=== PATIENT | female | born 1990 | race Caucasian/White ===

== ENCOUNTER 2018-07-04 16:36 | Emergency (ER) | payer MEDICAID, SELFPAY ==
[2018-07-04 16:45] VITALS: BP 148/88; PULSE 90; RESP 16; TEMP 36.6; O2SAT 97
--- NOTE | 2018-07-04 17:03 | W.ED.GENAD ---
Discharge Plan Disposition Patient Disposition: HOME Condition: Stable Discharge Details Chief Complaint: RespSymp Clinical Impression: URI (upper respiratory infection) Primary Care Provider: Nadja Bearden ED Provider: Maged Borja Home Meds and New Rx's Prescriptions: Continued levonorgestrel-ethinyl estrad [Seasonale contraceptive] 1 EACH tablets,dose pack,3 month 1 cap PO DAILY AM RF: 0 venlafaxine 150 mg Capsule,Extended Release 24hr 150 mg PO DAILY RF: 0 Discharge Instructions Instructions: Upper Respiratory Infection (ED) Additional Instructions: if symptoms continue next week see your primary care provider if you have worsening difficulty breathing, high fevers or severe pain return to the emergency department you can try using over the counter nasal irrigation products such as a netti pot Stand Alone Forms: Work Release Medical Decision Making 28 yo female who denies chronic medical problems comes in with chief complaint of runny nose, cough for about a week. Denies chest pressure, sob, fevers, recent travel, rashes, severe headaches. Has clear rhinorrhea on exam, clear lungs and is speaking in full sentences and appears well systemically. I suspect viral uri with post nasal drip. Has no findings on exam to suggest pna or sepsis and do not fel xray, labs or abx indicated. Advised f/u with pcp next week and return precautions given. Differential Diagnosis uri, bronchitis, influenza HPI General Mode of arrival: ambulatory. Date/Time Provider Initiated Documentation: 07/04/18 16:51. Limitations to Documentation: no limitations. Information obtained by: patient. History of Present Illness 28 year old F presents to the emergency department with the chief complaint of runny nose, and is localized to the face. Patient reports no radiation. Patient started experiencing this week(s) (1) and it has been constant. No relieving factors improve symptom(s), No exacerbating factors reported . Patient did receive the following treatments prior to arrival, none Related Data Home Medications Medication Instructions Recorded Confirmed levonorgestrel-ethinyl estrad 1 cap PO DAILY AM 01/30/14 07/04/18 [Seasonale contraceptive] venlafaxine 150 mg PO DAILY 07/04/18 07/04/18 Allergies Allergy/AdvReac Type Severity Reaction Status Date / Time No Known Allergies Allergy Unverified 07/04/18 16:47 General Stated Complaint: RespSymp HEMANT: 4 Review of Systems Review of Systems All systems reviewed & are unremarkable except as noted in HPI and below Constitutional Denies chills, Denies fever(s) and Denies weakness Cardiovascular Denies chest pain and Denies dyspnea Respiratory Denies dyspnea Gastrointestinal Denies abdominal pain, Denies nausea and Denies vomiting Neurologic Denies weakness Psychiatric Denies depression PFSH Medical History Bipolar disorder Social History Smoking/Tobacco Use Status: Never Exam Const General: no acute distress Orientation: alert HENMT Head: normal to inspection Ears: external ears normal General nose exam: external nose normal Mouth: moist mucous membranes Eyes General: appearance normal, both eyes and all related structures Neck Neck: normal visual inspection Resp Effort & Inspection: normal respiratory effort and able to speak in complete sentences Cardio Rate: regular rate Skin General skin exam: no rashes or lesions noted Neuro General: alert and oriented x3 Extrem General: normal to inspection Psych Mental Status: mental status grossly normal Course Vital Signs Temperature 36.6 C 07/04/18 16:45 Pulse 90 07/04/18 16:45 Respiratory Rate 16 07/04/18 16:45 Blood Pressure 148/88 H 07/04/18 16:45 Pulse Oximetry 97 07/04/18 16:45 Temperature 36.6 C 07/04/18 16:45 Pulse 90 07/04/18 16:45 Respiratory Rate 16 07/04/18 16:45 Respiratory Effort 07/04/18 16:46 Blood Pressure 148/88 H 07/04/18 16:45 Blood Pressure Position Sitting 07/04/18 16:45 Pulse Oximetry 97 07/04/18 16:45 Oxygen Delivery Method Room Air 07/04/18 16:45 Oxygen Flow Rate 0 07/04/18 16:45 Pain Level 4 07/04/18 16:45
--- NOTE | 2018-07-04 17:06 | ED.GENADUL_ITS ---
Discharge Plan Disposition Patient Disposition: HOME Condition: Stable Discharge Details Chief Complaint: RespSymp Clinical Impression: URI (upper respiratory infection) Primary Care Provider: Nadja Bearden ED Provider: Maged Borja Home Meds and New Rx's Prescriptions: Continued levonorgestrel-ethinyl estrad [Seasonale contraceptive] 1 EACH tablets,dose pack,3 month 1 cap PO DAILY AM RF: 0 venlafaxine 150 mg Capsule,Extended Release 24hr 150 mg PO DAILY RF: 0 Discharge Instructions Instructions: Upper Respiratory Infection (ED) Additional Instructions: if symptoms continue next week see your primary care provider if you have worsening difficulty breathing, high fevers or severe pain return to the emergency department you can try using over the counter nasal irrigation products such as a netti pot Stand Alone Forms: Work Release Medical Decision Making 28 yo female who denies chronic medical problems comes in with chief complaint of runny nose, cough for about a week. Denies chest pressure, sob, fevers, recent travel, rashes, severe headaches. Has clear rhinorrhea on exam, clear lungs and is speaking in full sentences and appears well systemically. I suspect viral uri with post nasal drip. Has no findings on exam to suggest pna or sepsis and do not fel xray, labs or abx indicated. Advised f/u with pcp next week and return precautions given. Differential Diagnosis uri, bronchitis, influenza HPI General Mode of arrival: ambulatory . Date/Time Provider Initiated Documentation: 07/04/18 16:51 . Limitations to Documentation: no limitations . Information obtained by: patient . History of Present Illness 28 year old F presents to the emergency department with the chief complaint of runny nose, and is localized to the face. Patient reports no radiation. Patient started experiencing this week(s) (1) and it has been constant. No relieving factors improve symptom(s), No exacerbating factors reported . Patient did receive the following treatments prior to arrival, none Related Data Home Medications Medication Instructions Recorded Confirmed levonorgestrel-ethinyl estrad 1 cap PO DAILY AM 01/30/14 07/04/18 [Seasonale contraceptive] venlafaxine 150 mg PO DAILY 07/04/18 07/04/18 Allergies Allergy/AdvReac Type Severity Reaction Status Date / Time No Known Allergies Allergy Unverified 07/04/18 16:47 General Stated Complaint: RespSymp HEMANT: 4 Review of Systems Review of Systems All systems reviewed & are unremarkable except as noted in HPI and below Constitutional Denies chills, Denies fever(s) and Denies weakness Cardiovascular Denies chest pain and Denies dyspnea Respiratory Denies dyspnea Gastrointestinal Denies abdominal pain, Denies nausea and Denies vomiting Neurologic Denies weakness Psychiatric Denies depression PFSH Medical History Bipolar disorder Social History Smoking/Tobacco Use Status: Never Exam Const General: no acute distress Orientation: alert HENMT Head: normal to inspection Ears: external ears normal General nose exam: external nose normal Mouth: moist mucous membranes Eyes General: appearance normal, both eyes and all related structures Neck Neck: normal visual inspection Resp Effort & Inspection: normal respiratory effort and able to speak in complete sentences Cardio Rate: regular rate Skin General skin exam: no rashes or lesions noted Neuro General: alert and oriented x3 Extrem General: normal to inspection Psych Mental Status: mental status grossly normal Course Vital Signs Temperature 36.6 C 07/04/18 16:45 Pulse 90 07/04/18 16:45 Respiratory Rate 16 07/04/18 16:45 Blood Pressure 148/88 H 07/04/18 16:45 Pulse Oximetry 97 07/04/18 16:45 Temperature 36.6 C 07/04/18 16:45 Pulse 90 07/04/18 16:45 Respiratory Rate 16 07/04/18 16:45 Respiratory Effort 07/04/18 16:46 Blood Pressure 148/88 H 07/04/18 16:45 Blood Pressure Position Sitting 07/04/18 16:45 Pulse Oximetry 97 07/04/18 16:45 Oxygen Delivery Method Room Air 07/04/18 16:45 Oxygen Flow Rate 0 07/04/18 16:45 Pain Level 4 07/04/18 16:45
[2018-07-04 17:10] VITALS: BP 148/88; PULSE 90; RESP 16; TEMP 36.6; O2SAT 97
== END 2018-07-04 17:11 | disposition home or self-care (01) ==
PROVIDERS: Emergency Provider Emergency Medicine; PCP Nurse Practitioner Family
DX: J06.9 Acute upper respiratory infection, unspecified (principal)
CPT/HCPCS: 99282

== ENCOUNTER 2018-10-01 17:20 | Emergency (ER) | payer MEDICAID, SELFPAY ==
[2018-10-01 17:24] VITALS: BP 148/84; PULSE 84; RESP 18; TEMP 36.8
--- NOTE | 2018-10-01 17:32 | W.ED.GENAD ---
Discharge Plan Disposition Patient Disposition: HOME Discharge Details Chief Complaint: Urinary Clinical Impression: UTI (urinary tract infection), Cardiac murmur, Elevated blood pressure reading Primary Care Provider: Nadja Bearden ED Provider: Toney Ramon Home Meds and New Rx's Prescriptions: New cephalexin 500 mg tablet 500 mg PO BID Qty: 13 RF: 0 Continued levonorgestrel-ethinyl estrad [Seasonale contraceptive] 1 EACH tablets,dose pack,3 month 1 cap PO DAILY AM RF: 0 venlafaxine 150 mg Capsule,Extended Release 24hr 150 mg PO DAILY RF: 0 Discharge Instructions Instructions: Urinary Tract Infection in Women (ED), Heart Murmur (ED) Additional Instructions: Your blood pressure is elevated. You were noted to have a murmur on exam today. Please follow-up with your primary care physician. Please take full course of antibiotic as prescribed. Return to the ER for any worsening or new concerning symptoms. Referrals: Nadja Bearden [Primary Care Provider] - Medical Decision Making 28-year-old female here with dysuria. Patient does not appear septic. Patient informed that her blood pressure slightly elevated today and she should have this rechecked with her doctor. Patient also noted to have systolic murmur on exam. She has no known history of murmur. I encouraged her to follow-up with her doctor regarding this. Urine negative. Urinalysis reviewed and consistent with UTI. Plan to treat with Keflex. Offered Pyridium the patient declined and notes this is not helped her in the past. HPI General Mode of arrival: ambulatory. Date/Time Provider Initiated Documentation: 10/01/18 17:21. Limitations to Documentation: no limitations. Information obtained by: patient. HPI Narrative: 28-year-old female presents with chief complaint of dysuria. Patient notes painful urination started this morning. Pain is described as burning. Pain is moderate. Patient also notes urinary urgency. No nausea or vomiting. No flank pain. No fever. Symptoms feel exactly like prior urinary tract infection that she had last had 2 years ago. Related Data Home Medications Medication Instructions Recorded Confirmed levonorgestrel-ethinyl estrad 1 cap PO DAILY AM 01/30/14 10/01/18 [Seasonale contraceptive] venlafaxine 150 mg PO DAILY 07/04/18 10/01/18 cephalexin 500 mg PO BID #13 tab 10/01/18 Previous Rx's Medication Instructions Recorded cephalexin 500 mg PO BID #13 tab 10/01/18 Allergies Allergy/AdvReac Type Severity Reaction Status Date / Time No Known Allergies Allergy Unverified 07/04/18 16:47 General Stated Complaint: Urinary HEMANT: 5 Review of Systems Constitutional Denies fever(s) Gastrointestinal Denies vomiting Genitourinary Reports dysuria PFSH Medical History Bipolar disorder Social History Smoking/Tobacco Use Status: Never Alcohol Intake: never Drug use: Never Substance use type: does not use Do you feel safe at home: Yes Do you feel safe in your relationship?: Yes Exam HENMT Mouth: moist mucous membranes Resp Auscultation: clear to auscultation bilaterally, no rales, no rhonchi and no wheezes Cardio Jugular venous pressure: no JVD Rate: regular rate and not tachycardic Rhythm: regular rhythm Heart Sounds: murmur systolic I/ GI Palpation: soft, not firm, no guarding, no masses, not rigid and nontender Course Vital Signs Temperature 36.8 C 10/01/18 17:24 Pulse 84 10/01/18 17:24 Respiratory Rate 18 10/01/18 17:24 Blood Pressure 148/84 H 10/01/18 17:24 Temperature 36.8 C 10/01/18 17:24 Temperature Source Skin 10/01/18 17:24 Pulse 84 10/01/18 17:24 Respiratory Rate 18 10/01/18 17:24 Respiratory Effort Non-Labored 10/01/18 17:27 Blood Pressure 148/84 H 10/01/18 17:24 Blood Pressure Position Sitting 10/01/18 17:24 Pain Level 1 10/01/18 17:30
--- NOTE | 2018-10-01 17:36 | ED.GENADUL_ITS ---
Discharge Plan Disposition Patient Disposition: HOME Discharge Details Chief Complaint: Urinary Clinical Impression: UTI (urinary tract infection), Cardiac murmur, Elevated blood pressure reading Primary Care Provider: Nadja Bearden ED Provider: Toney Ramon Home Meds and New Rx's Prescriptions: New cephalexin 500 mg tablet 500 mg PO BID Qty: 13 RF: 0 Continued levonorgestrel-ethinyl estrad [Seasonale contraceptive] 1 EACH tablets,dose pack,3 month 1 cap PO DAILY AM RF: 0 venlafaxine 150 mg Capsule,Extended Release 24hr 150 mg PO DAILY RF: 0 Discharge Instructions Instructions: Urinary Tract Infection in Women (ED), Heart Murmur (ED) Additional Instructions: Your blood pressure is elevated. You were noted to have a murmur on exam today. Please follow-up with your primary care physician. Please take full course of antibiotic as prescribed. Return to the ER for any worsening or new concerning symptoms. Referrals: Nadja Bearden [Primary Care Provider] - Medical Decision Making 28-year-old female here with dysuria. Patient does not appear septic. Patient informed that her blood pressure slightly elevated today and she should have this rechecked with her doctor. Patient also noted to have systolic murmur on exam. She has no known history of murmur. I encouraged her to follow-up with her doctor regarding this. Urine negative. Urinalysis reviewed and consistent with UTI. Plan to treat with Keflex. Offered Pyridium the patient declined and notes this is not helped her in the past. HPI General Mode of arrival: ambulatory . Date/Time Provider Initiated Documentation: 10/01/18 17:21 . Limitations to Documentation: no limitations . Information obtained by: patient . HPI Narrative: 28-year-old female presents with chief complaint of dysuria. Patient notes painful urination started this morning. Pain is described as burning. Pain is moderate. Patient also notes urinary urgency. No nausea or vomiting. No flank pain. No fever. Symptoms feel exactly like prior urinary tract infection that she had last had 2 years ago. Related Data Home Medications Medication Instructions Recorded Confirmed levonorgestrel-ethinyl estrad 1 cap PO DAILY AM 01/30/14 10/01/18 [Seasonale contraceptive] venlafaxine 150 mg PO DAILY 07/04/18 10/01/18 cephalexin 500 mg PO BID #13 tab 10/01/18 Previous Rx's Medication Instructions Recorded cephalexin 500 mg PO BID #13 tab 10/01/18 Allergies Allergy/AdvReac Type Severity Reaction Status Date / Time No Known Allergies Allergy Unverified 07/04/18 16:47 General Stated Complaint: Urinary HEMANT: 5 Review of Systems Constitutional Denies fever(s) Gastrointestinal Denies vomiting Genitourinary Reports dysuria PFSH Medical History Bipolar disorder Social History Smoking/Tobacco Use Status: Never Alcohol Intake: never Drug use: Never Substance use type: does not use Do you feel safe at home: Yes Do you feel safe in your relationship?: Yes Exam HENMT Mouth: moist mucous membranes Resp Auscultation: clear to auscultation bilaterally, no rales, no rhonchi and no wheezes Cardio Jugular venous pressure: no JVD Rate: regular rate and not tachycardic Rhythm: regular rhythm Heart Sounds: murmur systolic I/ GI Palpation: soft, not firm, no guarding, no masses, not rigid and nontender Course Vital Signs Temperature 36.8 C 10/01/18 17:24 Pulse 84 10/01/18 17:24 Respiratory Rate 18 10/01/18 17:24 Blood Pressure 148/84 H 10/01/18 17:24 Temperature 36.8 C 10/01/18 17:24 Temperature Source Skin 10/01/18 17:24 Pulse 84 10/01/18 17:24 Respiratory Rate 18 10/01/18 17:24 Respiratory Effort Non-Labored 10/01/18 17:27 Blood Pressure 148/84 H 10/01/18 17:24 Blood Pressure Position Sitting 10/01/18 17:24 Pain Level 1 10/01/18 17:30
[2018-10-01 17:44] LABS: Bilirubin Negative (Negative); Blood Trace-intact (Negative); Clarity Clear; Glucose Negative (Negative); Ketones Negative (Negative); Leukocyte Esterase Trace (Negative); Nitrite Negative (Negative); Specific Gravity >= 1.030 (1.005-1.025); Urobilinogen 0.2 EU/dL (Up TO 0.2)
[2018-10-01 17:53] LABS: Bacteria Moderate HPF (Negative); C & S Indicated? Yes; Casts Negative LPF (Negative); Crystals Negative HPF (Negative); Epithelial Cells Rare HPF (Negative); Mucus Negative (Negative); Other Cells Negative (Negative)
[2018-10-01] MEDS: Cephalexin 500 MG CAP PO (18:34)
== END 2018-10-01 18:35 | disposition home or self-care (01) ==
PROVIDERS: Emergency Provider Student in an Organized Health Care Education/Training Program; PCP Nurse Practitioner Family
DX: N39.0 Urinary tract infection, site not specified (principal); B96.20 Unspecified Escherichia coli [E. coli] as the cause of diseases classified elsewhere; R03.0 Elevated blood-pressure reading, without diagnosis of hypertension
CPT/HCPCS: 87077; 99283; 81003; 81015; 87086; 87186

== ENCOUNTER 2019-04-19 16:52 | Outpatient (REF) | payer MEDICAID, SELFPAY ==
--- NOTE | 2019-04-19 16:10 | PAPFT_PTH ---
PATIENT: Lisa Powell LOC: [facility] U#:[id number] AGE/SX: 29/F ROOM: RE04/19/[address]: Nadja Bearden : 1990 BED: DIS: 04/19/2019 SPEC #: [id number] RECD: 04/19/19 18:09 STATUS: AMADO REBelen #: [id number] PRESLEY: 04/19/19 16:[address]: Nadja Bearden DEPT: [facility] Cytology RECD BY: Rubina Oliveira Tissues: 1 - CX/ENDOCX FOR PAP SMEARS Procedures: PAP THIN PREP/UVM Screening HPV DNA PROBE Comments: [id number]
[2019-04-19 18:38] LABS: HCT 38.6 % (36.0-46.0); HGB 13.5 g/dL (12.0-15.5); Mean Corpuscular Hemoglobin 31.3 pg (27.0-33.0); Mean Corpuscular Volume 89.4 fL (80-95); Mean Platelet Volume 10.3 fL (8.0-11.0); Platelet Count 262 x1000/uL (130-400); RBC 4.32 m/cumm (4.00-5.20); RBC Distribution Width 12.5 % (11.7-14.6); White Blood Cell Count 6.35 k/cumm (4.4-10.8)
[2019-04-19 19:10] LABS: Iron 106 ug/dL (50-175); Total Iron Binding Capacity 398 ug/dL (250-450); Transferrin Sat 27 % (15-50)
[2019-04-19 19:23] LABS: Anion Gap 13.2 mmol/L (3-11); BUN 12 mg/dL (7-18); CO2 23.8 mmol/L (21.0-32.0); CREATININE 0.91 mg/dL (0.55-1.02); Calcium 8.8 mg/dL (8.5-10.1); Calculated LDL 159 mg/dL; Chloride 103 mmol/L (98-107); Cholesterol 235 mg/dL (50-200); Ferritin 173 ng/mL (8-388); Glucose 113 mg/dL (70-100); HDL Cholesterol 36 mg/dL (40-60); Potassium 3.7 mmol/L (3.5-5.1); Sodium 140 mmol/L (136-145); TSH (W/Ref FT4) 2.27 uIU/mL (0.36-3.74); Triglyceride 204 mg/dL (30-150)
== END 2019-04-19 17:12 ==
LOC: NCHCN 16:52
PROVIDERS: PCP Nurse Practitioner Family; Visit Provider Nurse Practitioner Family
DX: R53.83 Other fatigue (principal); Z12.4 Encounter for screening for malignant neoplasm of cervix; Z11.51 Encounter for screening for human papillomavirus (HPV)
CPT/HCPCS: 80048; 80061; 85027; 88142; 82728; 83540; 83550; 84443; 87624

== ENCOUNTER 2020-05-23 15:05 | Outpatient (REF) | payer MEDICAID, SELFPAY ==
--- NOTE | 2020-05-23 14:30 | PAPFT_PTH ---
PATIENT: Lisa Powell LOC: REPLACED BY [facility] U#:[id number] AGE/SX: 30/F ROOM: RE05/23/[address]: Nadja Bearden : 1990 BED: DIS: 05/23/2020 SPEC #: [id number] RECD: 05/26/20 12:47 STATUS: AMADO REBelen #: [id number] PRESLEY: 05/23/20 14:[address]: Nadja Bearden DEPT: [facility] Cytology RECD BY: Brittni Middleton Tissues: 1 - CX/ENDOCX FOR PAP SMEARS Procedures: PAP THIN PREP/UVM Screening HPV DNA PROBE Comments: [id number] (CVPH#) (CHLAMYDIA/GC)
[2020-05-30 16:24] LABS: Chlamydia Result Negative (Negative)
[2020-05-30 16:25] LABS: GC Result Negative (Negative)
== END 2020-05-23 15:25 ==
LOC: NCHCN 15:05
PROVIDERS: PCP Nurse Practitioner Family; Visit Provider Nurse Practitioner Family
DX: Z00.00 Encounter for general adult medical examination without abnormal findings (principal); Z12.4 Encounter for screening for malignant neoplasm of cervix; Z11.51 Encounter for screening for human papillomavirus (HPV); Z11.3 Encounter for screening for infections with a predominantly sexual mode of transmission
CPT/HCPCS: 87491; 87591; 88142; 87624

== ENCOUNTER 2021-02-16 20:49 | Outpatient (REF) | payer MEDICAID, SELFPAY | END 2021-02-16 20:50 | disposition home or self-care (01) | LOC: LBN 20:49 | PROVIDERS: PCP Nurse Practitioner Family; Visit Provider Nurse Practitioner Family | DX: R30.0 Dysuria (principal) | CPT/HCPCS: 87077; 87086; 87186 ==

== ENCOUNTER 2021-03-04 19:39 | Outpatient (REF) | payer MEDICAID, SELFPAY | END 2021-03-04 19:40 | disposition home or self-care (01) | LOC: LBN 19:39 | PROVIDERS: PCP Nurse Practitioner Family; Visit Provider Physician Assistant Medical | DX: R30.0 Dysuria (principal) | CPT/HCPCS: 87077; 87086; 87186 ==

== ENCOUNTER 2021-03-15 10:38 | Emergency (ER) | payer MEDICAID, SELFPAY ==
[2021-03-15 10:57] LABS: Bilirubin Negative (Negative); Blood Small (Negative); Clarity Cloudy (Clear); Glucose Negative (Negative); Ketones Negative (Negative); Leukocyte Esterase Large (Negative); Nitrite Positive (Negative); Specific Gravity >= 1.030 (1.005-1.025); Urobilinogen 0.2 EU/dL (Up TO 0.2)
[2021-03-15 10:59] VITALS: BP 132/82; PULSE 72; TEMP 36.6; O2SAT 99
[2021-03-15 11:04] LABS: Bacteria Moderate HPF (Negative); Casts Negative LPF (Negative); Crystals Negative HPF (Negative); Epithelial Cells Many HPF (Negative); Mucus Trace (Negative)
[2021-03-15 11:05] LABS: C & S Indicated? No/Sq. Contamination
--- NOTE | 2021-03-15 11:10 | ED.GENADUL_ITS ---
Discharge Plan Disposition Patient Disposition: HOME Condition: Improving Discharge Details Clinical Impression: UTI (urinary tract infection) Primary Care Provider: Nadja Bearden ED Provider: Serjio Singh Home Meds and New Rx's Prescriptions: New cephalexin 500 mg tablet 500 mg PO TID 7 Days Qty: 21 RF: 0 fluconazole [Diflucan] 150 mg tablet 150 mg PO ONCE Qty: 1 RF: 0 Continued levonorgestrel-ethinyl estrad [Seasonale contraceptive] 1 EACH tablets,dose pack,3 month 1 cap PO DAILY AM RF: 0 Discharge Instructions Instructions: Urinary Tract Infection in Women (ED) Additional Instructions: Please follow-up in clinic on Tuesday as planned. Take antibiotics and Diflucan as prescribed. I recommend you take an [id number] probiotic once daily while on the antibiotics. Return to the ER for any acute concerns. Medical Decision Making 31-year-old female who reports her third urinary tract infection this month. Previously treated after visits at urgent care. Now with recurrent burning and urgency to urinate with associated with some itching. She denies discharge. She arrives to ER with reassuring vital signs and an unremarkable exam. Due to high patient volumes, no fibrin was available which I discussed with the patient. She deferred further examination including [employer] exam. She does have evidence of UTI. We will discussed with her also treating empirically with a single dose of Diflucan. She will follow-up as planned on Tuesday with primary care at which time urine results of culture may be reviewed. I will place her on 7 days of Keflex. She understands homecare, need for follow-up, as well as indications to return to the ER. HPI General Mode of arrival: ambulatory . Date/Time Provider Initiated Documentation: 03/15/21 10:54 . Limitations to Documentation: no limitations . Information obtained by: patient . History of Present Illness 31 year old F presents to the emergency department with the chief complaint of Recurrent burning with urination, described as mild and similar to prior episodes, Quality is described as dull, and is localized to the pelvis and genitals. Patient reports no radiation. Patient started experiencing this hour(s) and it has been constant. No relieving factors improve symptom(s), No exacerbating factors reported . Patient notes denies fever/chills. Patient did receive the following treatments prior to arrival, none Related Data Home Medications Medication Instructions Recorded Confirmed levonorgestrel-ethinyl estrad 1 cap PO DAILY AM 01/30/14 03/15/21 [Seasonale contraceptive] cephalexin 500 mg PO TID 7 Days #21 tab 03/15/21 fluconazole [Diflucan] 150 mg PO ONCE #1 tab 03/15/21 Previous Rx's Medication Instructions Recorded cephalexin 500 mg PO TID 7 Days #21 tab 03/15/21 fluconazole [Diflucan] 150 mg PO ONCE #1 tab 03/15/21 Allergies Allergy/AdvReac Type Severity Reaction Status Date / Time No Known Allergies Allergy Unverified 07/04/18 16:47 General Stated Complaint: Urinary HEMANT: 4 Review of Systems Narrative: Reports itching. No foul-smelling discharge, no pain with intercourse. 7 systems reviewed and otherwise negative [facility] Medical History (Updated 03/15/21 @ 11:14 by Serjio Singh MD) Bipolar disorder Social History Smoking/Tobacco Use Status: Never Smoking risk assessment performed?: Yes Alcohol Intake: never Drug use: Never Substance use type: does not use Do you feel safe at home: Yes Do you feel safe in your relationship?: Yes Exam Narrative Exam Narrative: GEN: awake, alert, oriented 3. Pleasant, well groomed, interactive. HEAD: Normocephalic, atraumatic EYES: PERRL, EOMI NECK: Full ROM, no BERNARDA, no menigismus CHEST/RESP: Nontender, clear to auscultation bilateral, no wheeze/rhonchi/rales CARDIOVASCULAR: RRR, no murmur, rub rosa. 2+ Rad pulse bilateral ABDOMEN: Soft, nontender, no mass. +Bowel sounds Neuro: Grossly normal neurologic exam, conversant, interactive. Psych: Speech fluent, thoughts congruent, affect normal Course Vital Signs Vital signs: Vital Signs Temperature 36.6 C 03/15/21 10:59 Pulse 72 03/15/21 10:59 Blood Pressure 132/82 03/15/21 10:59 Pulse Oximetry 99 03/15/21 10:59 Temperature 36.6 C 03/15/21 10:59 Temperature Source Temporal Artery Scan 03/15/21 10:59 Pulse 72 03/15/21 10:59 Respiratory Effort Non-Labored 03/15/21 11:02 Blood Pressure 132/82 03/15/21 10:59 Blood Pressure Position Sitting 03/15/21 10:59 Pulse Oximetry 99 03/15/21 10:59 Oxygen Delivery Method Room Air 03/15/21 10:59 Oxygen Flow Rate 0 03/15/21 10:59 Pain Level 4 03/15/21 11:02 Lab/Test Results Lab/Test Results: Laboratory Tests Range/Units 03/15/21 10:52 Urine Color (Yellow) Yellow Urine Clarity (Clear) Cloudy Urine pH (5-8) 6.0 Ur Specific Sweet (1.005-1.025) >= 1.030 H Urine Protein (Negative) mg/dL 30 H Urine Ketones (Negative) mg/dL Negative Urine Blood (Negative) Small H Urine Nitrite (Negative) Positive H Urine Bilirubin (Negative) Negative Urine Urobilinogen (Up TO 0.2) EU/dL 0.2 Ur Leukocyte Esterase (Negative) Large H Urine RBC (0-2) HPF 5-10 H Urine WBC (0-5) HPF 10-20 H Ur Epithelial Cells (Negative) HPF Many Urine Crystals (Negative) HPF Negative Urine Bacteria (Negative) HPF Moderate Urine Casts (Negative) LPF Negative Urine Mucus (Negative) Trace Ur Culture Indicated? No/Sq. Contamination Urine Glucose (Negative) mg/dL Negative POC- Test(urine) Negative
--- NOTE | 2021-03-15 14:13 | W.ED.FU ---
Follow Up Plan: Lab was unable to perform urine culture for service date 03/15
== END 2021-03-15 11:21 | disposition home or self-care (01) ==
PROVIDERS: Emergency Provider Emergency Medicine; PCP Nurse Practitioner Family
DX: N39.0 Urinary tract infection, site not specified (principal)
CPT/HCPCS: 81025; 99283; 81003; 81015; 87086

== ENCOUNTER 2021-03-29 12:14 | Emergency (ER) | payer MEDICAID, SELFPAY ==
[2021-03-29 12:19] VITALS: BP 121/83; PULSE 98; RESP 18; TEMP 36.5; O2SAT 98
--- NOTE | 2021-03-29 12:33 | W.ED.GENAD ---
Discharge Plan Disposition Patient Disposition: HOME Condition: Improving Discharge Details Clinical Impression: UTI (urinary tract infection) Primary Care Provider: Nadja Bearden ED Provider: Serjio Singh Home Meds and New Rx's Prescriptions: New sulfamethoxazole-trimethoprim [Bactrim DS] 800-160 mg tablet 1 tab PO BID 7 Days Qty: 14 RF: 0 Continued levonorgestrel-ethinyl estrad [Seasonale contraceptive] 1 EACH tablets,dose pack,3 month 1 cap PO DAILY AM RF: 0 fluconazole [Diflucan] 150 mg tablet 150 mg PO ONCE Qty: 1 RF: 0 Discharge Instructions Instructions: Urinary Tract Infection in Women (ED) Additional Instructions: We will ask our care management team to arrange a follow-up for you in urology clinic as we discussed. Take antibiotics as prescribed. Continue to liberally hydrate. Return to the ER for any acute concerns. Medical Decision Making 31-year-old female with a history of recurrent UTIs, more frequent this summer than previous. Seen by me in the emergency department on March 15 for acute cystitis, placed on Keflex. Urine culture did not occur from that visit. She now returns the ER with 2 days of recurrent burning with urination. Urinalysis is consistent with acute UTI. Will place her on Bactrim with culture pending and will ask care management to arrange a follow-up in urology for consideration of further work-up. HPI General Mode of arrival: ambulatory. Date/Time Provider Initiated Documentation: 03/29/21 12:18. Limitations to Documentation: no limitations. Information obtained by: patient. History of Present Illness 31 year old F presents to the emergency department with the chief complaint of Recurrent dysuria, described as mild and similar to prior episodes, and is localized to the abdomen and pelvis. Patient reports no radiation. Patient started experiencing this hour(s) and it has been intermittent. No relieving factors improve symptom(s), No exacerbating factors reported . Patient notes denies fever/chills, loss of appetite and nausea/vomiting. Related Data Home Medications Medication Instructions Recorded Confirmed levonorgestrel-ethinyl estrad 1 cap PO DAILY AM 01/30/03/29/21 [Seasonale contraceptive] fluconazole [Diflucan] 150 mg PO ONCE #1 tab 03/15/21 03/29/21 sulfamethoxazole-trimethoprim 1 tab PO BID 7 Days #14 tab 03/29/21 [Bactrim DS] Previous Rx's Medication Instructions Recorded fluconazole [Diflucan] 150 mg PO ONCE #1 tab 03/15/21 sulfamethoxazole-trimethoprim 1 tab PO BID 7 Days #14 tab 03/29/21 [Bactrim DS] Allergies Allergy/AdvReac Type Severity Reaction Status Date / Time No Known Allergies Allergy Unverified 03/29/21 12:24 General Stated Complaint: Urinary HEMANT: 3 Review of Systems Narrative: Otherwise well. Denies other complaints. [facility] Medical History (Updated 03/29/21 @ 12:56 by Serjio Singh MD) Bipolar disorder Social History Smoking/Tobacco Use Status: Never Smoking risk assessment performed?: Yes Alcohol Intake: never Drug use: Never Substance use type: does not use Do you feel safe at home: Yes Do you feel safe in your relationship?: Yes Exam Narrative Exam Narrative: GEN: awake, alert, oriented 3. Pleasant, well groomed, interactive. HEAD: Normocephalic, atraumatic ENT: Mucous membranes moist, oropharynx unremarkable, External ear exam unremarkable CHEST/RESP: Nontender, clear to auscultation bilateral, no wheeze/rhonchi/rales CARDIOVASCULAR: RRR, no murmur, rub rosa. 2+ Rad pulse bilateral ABDOMEN: Soft, nontender, no mass. +Bowel sounds EXT: Full ROM, no edema, no rash Neuro: Grossly normal neurologic exam, conversant, interactive. Psych: Speech fluent, thoughts congruent, affect normal Course Vital Signs Vital signs: Vital Signs Temperature 36.5 C 03/29/21 12:19 Pulse 98 H 03/29/21 12:19 Respiratory Rate 18 03/29/21 12:19 Blood Pressure 121/83 03/29/21 12:19 Pulse Oximetry 98 03/29/21 12:19 Temperature 36.5 C 03/29/21 12:19 Pulse 98 H 03/29/21 12:19 Respiratory Rate 18 03/29/21 12:19 Blood Pressure 121/83 03/29/21 12:19 Blood Pressure Position Sitting 03/29/21 12:19 Pulse Oximetry 98 03/29/21 12:19 Oxygen Delivery Method Room Air 03/29/21 12:19 Oxygen Flow Rate 0 03/29/21 12:19 Pain Level 0 03/29/21 12:19
[2021-03-29 12:40] LABS: Bilirubin Negative (Negative); Blood Moderate (Negative); Clarity Sl Cloudy (Clear); Glucose Negative (Negative); Ketones Negative (Negative); Leukocyte Esterase Large (Negative); Nitrite Negative (Negative); Specific Gravity >= 1.030 (1.005-1.025); Urobilinogen 0.2 EU/dL (Up TO 0.2)
[2021-03-29 12:57] LABS: Bacteria Moderate HPF (Negative); C & S Indicated? Yes; Casts Negative LPF (Negative); Crystals Negative HPF (Negative); Epithelial Cells Few HPF (Negative); Mucus Negative (Negative); WBC >50 HPF (0-5)
[2021-03-29] MEDS: Sulfameth/Trimeth DS, 2 TABS/BTL 1 TAB PO (13:03)
--- NOTE | 2021-03-29 17:07 | NUR.NOTE ---
referral sent to urology
== END 2021-03-29 13:41 | disposition home or self-care (01) ==
PROVIDERS: Emergency Provider Emergency Medicine; PCP Nurse Practitioner Family
DX: N39.0 Urinary tract infection, site not specified (principal); B96.20 Unspecified Escherichia coli [E. coli] as the cause of diseases classified elsewhere
CPT/HCPCS: 81025; 87077; 99283; 81003; 81015; 87086; 87186

== ENCOUNTER 2021-05-10 10:44 | Emergency (ER) | payer MEDICAID, SELFPAY ==
[2021-05-10 10:52] VITALS: BP 144/87; PULSE 87; RESP 18; TEMP 36.6; O2SAT 97
--- NOTE | 2021-05-10 11:02 | W.ED.GENAD ---
Discharge Plan Disposition Patient Disposition: HOME Condition: Stable Discharge Details Clinical Impression: UTI (urinary tract infection) Primary Care Provider: Nadja Bearden ED Provider: Chica Ramirez Home Meds and New Rx's Prescriptions: New cephalexin 500 mg tablet 500 mg PO QID 7 Days Qty: 28 RF: 0 Continued Nexplanon 68 mg implant 1 implant subdermal ONCE RF: 0 Discharge Instructions Instructions: Urinary Tract Infection in Women (ED) Additional Instructions: Your urinalysis is concerning for recurrent urinary tract infection. Please take the Keflex as prescribed. Even if symptoms improve, please take the entire course. Please encourage hydration. You may use Tylenol and ibuprofen as discomfort. Please take the Pyridium as prescribed to help with symptomatic management. This will turn your urine bright orange. Your vaginal pathology and GC/chlamydia is pending. I will call you with your vaginal pathology results today. Your STD testing will be pending and will return in a few days, we will call you with any positive results. If develop fever/chills, back pain, inability to hydrate, vomiting or other new/worsening symptoms please seek care urgently once again. Please follow-up as previously discussed with urology regarding your current urinary tract infections. Referrals: Nadja Bearden [Primary Care Provider] - Discharge Data Discharge Date/Time-TO BE ENTERED AT DEPARTURE: 05/10/21 12:24 Medical Decision Making Patient is a pleasant 31-year-old female presenting today with chief complaint of recurrent UTI and vaginal discharge. Patient reports that she had a multitude of UTIs this summer. States that last night she began having dysuria, increased frequency and urgency. This woke her up throughout the evening. Denies any back pain. No fevers or chills. Yesterday she also began noting unusual, foul-smelling vaginal discharge. Denies any rash. Patient denies history of STI. She states that she has a new partner for the last 7 months. He has no evidence of STI. Was last treated for STDs during her annual Pap last year. On exam, patient appears nontoxic. She is slightly hypertensive, she has an elevated like historically. Abdomen is benign. No CVA tenderness. Vaginal exam shows a thick yellow discharge. This has been sent for GC, chlamydia?past testing. Patient does not have any cervical tenderness, negative chandelier sign. Initial urine was contaminated. Repeat urine does have swelling of the leukocyte esterase, elevated WBCs, bacteria and rare epithelial cells. This has reflex to culture. Reviewed previous urine cultures, urine has been pansensitive. Discussed treatment options with the patient. We will begin her on Keflex. As she has had any recurrent infections, we will treat her 4 times daily. First dose was given here. Also gave dose of Pyridium as this is worked well for her in the past. Patient would like to be able to go home while waiting the results of her vaginal Pap screen. I will call her with the results and call in appropriate medications as indicated. Patient can be reached on her cell phone at [phone]. Strict return precautions were discussed. Patient reports that she has been referred to urology for her frequent UTIs. Had initially foregone follow-up with them as these seem to slow down. However, with the recurrence in 1 month, she will call tomorrow to schedule appointment. Vaginal pathology negative. Called patient to discuss. She is aware we are awaiting GC and chlamydia testing. All 0f her questions and concerns were addressed, she is in agreement [facility] plan above. HPI General Mode of arrival: ambulatory. Date/Time Provider Initiated Documentation: 05/10/21 11:01. Limitations to Documentation: no limitations. Information obtained by: patient and RN notes reviewed. History of Present Illness 31 year old F presents to the emergency department with the chief complaint of concern for UTI and vaginal discharge, described as moderate and similar to prior episodes, with intensity rated at 3. Quality is described as burning, and is localized to the genitals. Patient reports no radiation. Patient started experiencing this day(s) (1) and it has been constant. No relieving factors improve symptom(s), No exacerbating factors reported . Patient notes no other symptoms.; denies fever/chills, loss of appetite, nausea/vomiting and rash. Patient did receive the following treatments prior to arrival, none Related Data Home Medications Medication Instructions Recorded Confirmed etonogestrel 68 mg subdermal 1 implant SUBDERMAL ONCE 04/23/21 05/10/21 implant cephalexin 500 mg PO QID 7 Days #28 tab 05/10/21 Previous Rx's Medication Instructions Recorded cephalexin 500 mg PO QID 7 Days #28 tab 05/10/21 Allergies Allergy/AdvReac Type Severity Reaction Status Date / Time No Known Allergies Allergy Unverified 05/10/21 10:57 General Stated Complaint: Urinary HEMANT: 4 Review of Systems Constitutional Constitutional: Reports as per HPI, Denies chills, Denies fever(s) and Denies poor appetite Cardiovascular Cardiovascular: Denies chest pain Respiratory Respiratory: Denies cough Gastrointestinal Gastrointestinal: Denies abdominal pain, Denies change in bowel habits, Denies nausea and Denies vomiting Genitourinary Genitourinary: Reports as per HPI Musculoskeletal Musculoskeletal: Reports as per HPI and Denies back pain Integumentary/Breasts Skin/Breast: Reports as per HPI and Denies rash [facility] Medical History (Updated 05/10/21 @ 12:10 by JUAN Rivera) Abdominal pain Anxiety and depression ASCUS (atypical squamous cells of undetermined significance) on gynecologic Papanicolaou smear complicating , antepartum Bilateral plantar fasciitis Bipolar disorder Dysuria Left hip pain Low back pain Rash Social History Smoking/Tobacco Use Status: Never Smoking risk assessment performed?: Yes Alcohol Intake: current Alcohol Intake frequency: holidays/special occasions only Drug use: Never Substance use type: does not use Do you feel safe at home: Yes Do you feel safe in your relationship?: Yes Exam Const General: cooperative, healthy appearing, comfortable, no acute distress, well developed and well groomed Nutritional Appearance: well nourished and overweight Orientation: alert and awake Resp Effort & Inspection: normal respiratory effort and no respiratory distress Auscultation: clear to auscultation bilaterally, no rales, no rhonchi and no wheezes Cardio Rate: regular rate Rhythm: regular rhythm Heart Sounds: S1 normal and S2 normal GI Inspection: normal to inspection Palpation: soft, no hepatosplenomegaly, not firm, no guarding, not rigid and nontender External Female Exam: normal external appearance Speculum Exam - Vagina: normal appearance of the vagina and abnormal vaginal discharge yellow (thick) Speculum Exam - Cervix: normal appearance of the cervix Bimanual Exam- Vagina & Uterus: normal bimanual exam Bimanual Exam- Adnexa, other: normal adnexae Back/Spine/Pelvis Back: no CVA tenderness Skin General skin exam: no rashes or lesions noted Trauma: no lacerations or abrasions Neuro General: patient alert and patient awake Cognition: normal cognition Speech: speech normal Gait: normal gait Psych Appearance: grossly normal and well kempt Mental Status: mental status grossly normal Speech and Movement: speech and movement normal Course Vital Signs Vital signs: Vital Signs Temperature 36.6 C 05/10/21 10:52 Pulse 87 05/10/21 10:52 Respiratory Rate 18 05/10/21 10:52 Blood Pressure 144/87 H 05/10/21 10:52 Pulse Oximetry 97 05/10/21 10:52 Temperature 36.6 C 05/10/21 10:52 Temperature Source Temporal Artery Scan 05/10/21 10:52 Pulse 87 05/10/21 10:52 Respiratory Rate 18 05/10/21 10:52 Respiratory Effort Non-Labored 05/10/21 10:58 Blood Pressure 144/87 H 05/10/21 10:52 Blood Pressure Position Sitting 05/10/21 10:52 Pulse Oximetry 97 05/10/21 10:52 Oxygen Delivery Method Room Air 05/10/21 10:52 Oxygen Flow Rate 0 05/10/21 10:52 Pain Level 3 05/10/21 10:52
[2021-05-10 11:07] LABS: Bilirubin Negative (Negative); Blood Small (Negative); Clarity Cloudy (Clear); Glucose Negative (Negative); Ketones Negative (Negative); Leukocyte Esterase Moderate (Negative); Nitrite Negative (Negative); Specific Gravity >= 1.030 (1.005-1.025); Urobilinogen 0.2 EU/dL (Up TO 0.2); pH 5.5 (5-8)
[2021-05-10 11:19] LABS: Bacteria Few HPF (Negative); C & S Indicated? No/Sq. Contamination; Casts Negative LPF (Negative); Crystals Negative HPF (Negative); Epithelial Cells Many HPF (Negative); Mucus Negative (Negative); WBC >50 HPF (0-5)
[2021-05-10 11:55] LABS: Bilirubin Negative (Negative); Blood Trace-intact (Negative); Clarity Sl Cloudy (Clear); Glucose Negative (Negative); Ketones Negative (Negative); Leukocyte Esterase Small (Negative); Nitrite Negative (Negative); Urobilinogen 0.2 EU/dL (Up TO 0.2)
[2021-05-10 12:04] LABS: Bacteria Rare HPF (Negative); C & S Indicated? Yes; Casts Negative LPF (Negative); Crystals Negative HPF (Negative); Epithelial Cells Few HPF (Negative); Mucus Negative (Negative); RBC 0-2 HPF (0-2); WBC 20-50 HPF (0-5)
[2021-05-10] MEDS: Phenazopyridine 100 MG TAB PO (12:10)
[2021-05-10] MEDS: Cephalexin 500 MG CAP PO (12:17)
[2021-05-10 12:24] VITALS: BP 137/85; PULSE 84; RESP 17; TEMP 36.7; O2SAT 99
[2021-05-19 13:07] LABS: Chlamydia Result Negative (Negative); GC Result Negative (Negative)
== END 2021-05-10 12:24 | disposition home or self-care (01) ==
PROVIDERS: Emergency Provider Physician Assistant; PCP Nurse Practitioner Family
DX: N89.8 Other specified noninflammatory disorders of vagina (principal); N39.0 Urinary tract infection, site not specified; Z87.440 Personal history of urinary (tract) infections
CPT/HCPCS: 87491; 87591; 99284; 81003; 81015; 87086; 87480; 87510; 87660; 99283

== ENCOUNTER 2021-05-19 12:46 | Emergency (ER) | payer MEDICAID, SELFPAY ==
[2021-05-19 13:50] VITALS: BP 125/97; PULSE 88; RESP 16; TEMP 36.1; O2SAT 100
[2021-05-19 14:11] LABS: Bilirubin Negative (Negative); Blood Trace-lysed (Negative); Clarity Cloudy (Clear); Glucose Negative (Negative); Ketones Negative (Negative); Leukocyte Esterase Large (Negative); Nitrite Negative (Negative); Specific Gravity 1.015 (1.005-1.025); Urobilinogen 0.2 EU/dL (Up TO 0.2); pH 5.5 (5-8)
[2021-05-19 14:22] LABS: Bacteria Many HPF (Negative); C & S Indicated? Yes; Crystals Negative HPF (Negative); Epithelial Cells Moderate HPF (Negative); Mucus Negative (Negative); Other Cells Moderate Yeast (Negative); WBC >50 HPF (0-5)
--- NOTE | 2021-05-19 15:11 | W.ED.GENAD ---
Discharge Plan Disposition Patient Disposition: HOME Condition: Stable Discharge Details Clinical Impression: UTI (urinary tract infection) Primary Care Provider: Nadja Bearden ED Provider: Lj Keller Home Meds and New Rx's Prescriptions: New sulfamethoxazole-trimethoprim [Bactrim DS] 800-160 mg tablet 1 tab PO BID Qty: 14 RF: 0 Continued Nexplanon 68 mg implant 1 implant subdermal ONCE RF: 0 Discharge Instructions Instructions: Urinary Tract Infection in Women (ED) Additional Instructions: Bactrim as directed. [id number] Azo as directed. The specific steroid we discussed was hydrocortisone cream, do not use this internally. Please watch for new or worsening symptoms and return to the ER for any concerns. We also discussed the importance of outpatient follow-up B through women's health, urology, your primary care provider, etc. Discharge Data Discharge Date/Time-TO BE ENTERED AT DEPARTURE: 05/19/21 15:35 Medical Decision Making 31-year-old female presents with ongoing burning and itching with urination. She is afebrile, denies abdominal pain, back pain, nausea, vomiting, fever. Urinalysis was obtained per protocol prior to my evaluation. Reveals large leuk esterase, 5-10 red cells, greater than 50 white cells, moderate epithelial cells, many bacteria Urinalysis given her ongoing symptoms, urinalysis revealing large leuk esterase, greater than 50 white cells, many bacteria, I do believe treating with antibiotics is reasonable. Given her recent Keflex I do believe changing antibiotics is also prudent. Reviewing previous record, it appears she has a allen sensitive urine culture. Will place on back Patient reports that overall her tissue feels dry, denies any vaginal bleeding or discharge. Her urinalysis did reveal yeast. She did use [id number] Monistat yesterday with no relief of her symptoms. Patient did have a pelvic exam during her last ER visit. Patient at this time is evaluated in room 10 and I cannot adequately provide a more thorough pelvic exam here in this room. I did explain to the patient that I could move her to a more appropriate room when the space is available and perform a pelvic exam for further evaluation. Outside of physically examine her, it is difficult to distinguish her other symptoms such as itching and/or dryness. We did discuss that she could use a all-natural lubricant for the dryness which may help her overall symptoms and she could use a topical 0.5% hydrocortisone cream only externally to see if this makes her symptoms at all improved but again I would recommend a more thorough pelvic evaluation. Patient does not want to wait in the ER any longer than she already has, is declining waiting and being transferred into a more appropriate room for pelvic examination. Patient is agreeable to initiating antibiotic therapy and plans to contact her outpatient primary care provider and/or urologist for her ongoing symptoms. Given her concern for vaginal dryness I did recommend that she reach out to women's health as well. I did explain to her that she could return to the ER at any time for reevaluation and we could perform a pelvic exam at that time. Patient understands, would like to trial antibiotics, and follow-up as an outpatient. No additional questions or concerns at this time This documentation was generated using [employer] system, please disregard any oddities of phrase or misspellings. Medical Records Medical records reviewed: Yes I reviewed the patient's medical records. Lab Data Lab results reviewed: Yes I reviewed the patient's lab results. Labs: 05/19/21 13:58 Urine - Reflex from Ua Urine Culture - Preliminary Gram Negative [facility] Tests Range/Units 05/19/21 13:58 Urine Color (Yellow) Yellow Urine Clarity (Clear) Cloudy Urine pH (5-8) 5.5 Ur Specific [place] (1.005-1.025) 1.015 Urine Protein (Negative) mg/dL Negative Urine Ketones (Negative) mg/dL Negative Urine Blood (Negative) Trace-lysed H Urine Nitrite (Negative) Negative Urine Bilirubin (Negative) Negative Urine Urobilinogen (Up TO 0.2) EU/dL 0.2 Ur Leukocyte Esterase (Negative) Large H Urine RBC (0-2) HPF 5-10 H Urine WBC (0-5) HPF >50 H Ur Epithelial Cells (Negative) HPF Moderate Urine Crystals (Negative) HPF Negative Urine Bacteria (Negative) HPF Many Urine Mucus (Negative) Negative Urine Other (Negative) Moderate Yeast Ur Culture Indicated? Yes Urine Glucose (Negative) mg/dL Negative HPI General Mode of arrival: ambulatory. Date/Time Provider Initiated Documentation: 05/19/21 14:16. Limitations to Documentation: no limitations. Information obtained by: patient. HPI Narrative: This is a 31-year-old female, past medical history of anxiety, depression, bipolar disorder, frequent UTIs, presenting to the ER reporting dysuria and itching with urination. Patient states that she was recently in the ER and finished her Keflex antibiotics. She also used [id number] Monistat yesterday with no relief of her symptoms. During her most recent visit she did have a complete pelvic exam performed. Patient denies fever, abdominal pain, nausea, vomiting, back pain, hematuria, vaginal bleeding or discharge. She is sexually active with one partner denies history of STD or STD exposure. Patient has followed up with urology for this problem in the past, continues to get urinary tract infections, and is becoming frustrated with the process. Related Data Home Medications Medication Instructions Recorded Confirmed etonogestrel 68 mg subdermal 1 implant SUBDERMAL ONCE 04/23/21 05/19/21 implant sulfamethoxazole-trimethoprim 1 tab PO BID #14 tab 05/19/21 [Bactrim DS] Previous Rx's Medication Instructions Recorded sulfamethoxazole-trimethoprim 1 tab PO BID #14 tab 05/19/21 [Bactrim DS] Allergies Allergy/AdvReac Type Severity Reaction Status Date / Time No Known Allergies Allergy Unverified 05/19/21 13:54 General Stated Complaint: Urinary HEMANT: 3 Review of Systems Constitutional Constitutional: Denies fever(s) Gastrointestinal Gastrointestinal: Denies abdominal pain, Denies nausea and Denies vomiting Genitourinary Genitourinary: Denies abnormal vaginal bleeding, Reports genital pruritis, Denies genital lesions, Reports dysuria, Denies vaginal discharge and Reports vaginal dryness Musculoskeletal Musculoskeletal: Denies back pain Integumentary/Breasts Skin/Breast: Denies erythema and Denies rash COUNT INCLUDES THE [facility] Medical History Abdominal pain Anxiety and depression ASCUS (atypical squamous cells of undetermined significance) on gynecologic Papanicolaou smear complicating , antepartum Bilateral plantar fasciitis Bipolar disorder Dysuria Left hip pain Low back pain Rash Social History Smoking/Tobacco Use Status: Never Smoking risk assessment performed?: Yes Alcohol Intake: current Alcohol Intake frequency: holidays/special occasions only Drug use: Never Substance use type: does not use Do you feel safe at home: Yes Do you feel safe in your relationship?: Yes Exam Const General: cooperative, healthy appearing, comfortable and no acute distress Orientation: alert, awake and oriented x3 HENMT Head: normal to inspection, normocephalic and atraumatic Eyes General: appearance normal, both eyes and all related structures Conjunctivae: conjunctivae normal Neck Neck: normal visual inspection, trachea midline and supple Resp Effort & Inspection: normal respiratory effort and able to speak in complete sentences Auscultation: clear to auscultation bilaterally Cardio Rate: regular rate Rhythm: regular rhythm GI Inspection: normal to inspection Palpation: soft, not firm, no guarding, no pulsatile masses and nontender General: deferred Back/Spine/Pelvis Back: No back tenderness Skin General skin exam: no rashes or lesions noted Neuro General: patient alert, patient awake, moves all extremities and no focal motor deficits Cognition: normal cognition Speech: speech normal Gait: normal gait Sensory Exam: no sensory deficits noted Psych Appearance: grossly normal Mental Status: mental status grossly normal Course Vital Signs Vital signs: Vital Signs Temperature 36.1 C L 05/19/21 13:50 Pulse 88 05/19/21 13:50 Respiratory Rate 16 05/19/21 13:50 Blood Pressure 125/97 H 05/19/21 13:50 Pulse Oximetry 100 05/19/21 13:50 Temperature 36.1 C L 05/19/21 13:50 Temperature Source Tympanic 05/19/21 13:50 Pulse 88 05/19/21 13:50 Respiratory Rate 16 05/19/21 13:50 Respiratory Effort Non-Labored 05/19/21 13:54 Blood Pressure 125/97 H 05/19/21 13:50 Blood Pressure Position Sitting 05/19/21 13:50 Pulse Oximetry 100 05/19/21 13:50 Oxygen Delivery Method Room Air 05/19/21 13:50 Oxygen Flow Rate 0 05/19/21 13:50 Pain Level 2 05/19/21 13:50 Lab/Test Results Lab/Test Results: 05/19/21 13:58 Urine - Reflex from Ua Urine Culture - Pending Laboratory Tests Range/Units 05/19/21 13:58 Urine Color (Yellow) Yellow Urine Clarity (Clear) Cloudy Urine pH (5-8) 5.5 Ur Specific [place] (1.005-1.025) 1.015 Urine Protein (Negative) mg/dL Negative Urine Ketones (Negative) mg/dL Negative Urine Blood (Negative) Trace-lysed H Urine Nitrite (Negative) Negative Urine Bilirubin (Negative) Negative Urine Urobilinogen (Up TO 0.2) EU/dL 0.2 Ur Leukocyte Esterase (Negative) Large H Urine RBC (0-2) HPF 5-10 H Urine WBC (0-5) HPF >50 H Ur Epithelial Cells (Negative) HPF Moderate Urine Crystals (Negative) HPF Negative Urine Bacteria (Negative) HPF Many Urine Mucus (Negative) Negative Urine Other (Negative) Moderate Yeast Ur Culture Indicated? Yes Urine Glucose (Negative) mg/dL Negative
== END 2021-05-19 15:35 | disposition home or self-care (01) ==
PROVIDERS: Emergency Provider Physician Assistant; PCP Nurse Practitioner Family
DX: N39.0 Urinary tract infection, site not specified (principal); B96.89 Other specified bacterial agents as the cause of diseases classified elsewhere
CPT/HCPCS: 99283; 81003; 81015; 87086

== ENCOUNTER 2021-06-15 15:22 | Emergency (ER) | payer MEDICAID, SELFPAY ==
[2021-06-15 15:35] VITALS: BP 145/96; PULSE 86; RESP 18; O2SAT 99
[2021-06-15 16:16] LABS: Bilirubin Negative (Negative); Blood Negative (Negative); Clarity Cloudy (Clear); Glucose Negative (Negative); Ketones Negative (Negative); Leukocyte Esterase Trace (Negative); Nitrite Positive (Negative); Specific Gravity >= 1.030 (1.005-1.025); Urobilinogen 0.2 EU/dL (Up TO 0.2); pH 5.5 (5-8)
--- NOTE | 2021-06-15 16:17 | ED.GENADUL_ITS ---
Discharge Plan Disposition Patient Disposition: HOME Condition: Stable Discharge Details Clinical Impression: UTI (urinary tract infection) Primary Care Provider: Nadja Bearden ED Provider: Chica Ramirez Home Meds and New Rx's Prescriptions: New cephalexin 500 mg capsule 500 mg PO QID 7 Days Qty: 28 RF: 0 nitrofurantoin monohyd/m-cryst [Macrobid] 100 mg capsule 100 mg PO ONCE PRNQty: 14 RF: 0 Continued Nexplanon 68 mg implant 1 implant subdermal ONCE RF: 0 Discharge Instructions Instructions: Urinary Tract Infection in Women (ED) Additional Instructions: You have another recurrent UTI. Please take the cephalexin as prescribed for your acute infection. Please encourage hydration. If you would like to transition your cranberry supplement to d-mannose, you can try this to see if that helps prevent recurrent infections. I have also prescribed you Macrobid which is an antibiotic that will be taken to 1 dose when you have sexual intercourse. Please keep your follow-up appointment with urology. If you develop fever/chills, back pain or other new/worsening symptom please seek care urgently once again. Referrals: Hayde Buckley, MAURICIO [NURSE PRACTITIONER] - Discharge Data Discharge Date/Time-TO BE ENTERED AT DEPARTURE: 06/15/21 16:44 Medical Decision Making Patient is a pleasant 31-year-old female presenting today with chief complaint of recurrent UTI. Patient reports that she had several UTIs in the past few months. Has been seen by urology. She symptoms began approximately 2 days ago. She was sexually active the night prior. She questioning if she may have had some symptoms are very mild today prior to that. She denies any fevers or chills. No back or flank pain. Denies any nausea or vomiting. Denies any vaginal discharge. Denies any change in bowel habits. States this does feel like her UTIs have instructed with dysuria, increased frequency and urgency. Reviewed note from when patient was seen recently by urology. This appears to be just prior through the large uptake in the number of urinary tract infection. At that time, the urology provider was able to identify that the seems to be sexually linked. The patient continues to agree with this. They did discuss beginning prophylactic antibiotics to be used after sexual intercourse but this had not been started as of yet. Patient has been using cranberry supplements. States that she is not drinking as much water as she should be. On exam, patient appears nontoxic. She does seem quite frustrated regarding her recurrent UTIs. She has no CVA tenderness. No abdominal discomfort. She is not endorsing any vaginal complaints at this time, do not see need for pelvic exam. I did perform pelvic exam on her last month and it was negative . Advised the patient transition to d-mannose. Patient has been pansensitive in the past. Her urine today is elevated specific gravity, positive nitrites, trace leukocyte esterase and many bacteria. We will treat once again with antibiotics. Also begin the patient on nitrofurantoin to be taken prophylactically after sexual intercourse. I encouraged water intake. Advised that she follow-up with urology once again. They have been planning to see her in 3 months.. Return precautions were discussed. All of her questions and concerns were addressed and she is in agreement this plan. HPI General Mode of arrival: ambulatory . Date/Time Provider Initiated Documentation: 06/15/21 15:26 . Limitations to Documentation: no limitations . Information obtained by: RN notes reviewed . History of Present Illness 31 year old F presents to the emergency department with the chief complaint of concern for UTI, described as mild and similar to prior episodes, with intensity rated at 3. Quality is described as burning, and is localized to the pelvis. Patient reports no radiation. Patient started experiencing this day(s) (3) and it has been constant. No relieving factors improve symptom(s), No exacerbating factors reported . Patient notes no other symptoms.. Patient did receive the following treatments prior to arrival, none Related Data Home Medications Medication Instructions Recorded Confirmed etonogestrel 68 mg subdermal 1 implant SUBDERMAL ONCE 04/23/21 06/15/21 implant cephalexin 500 mg PO QID 7 Days #28 cap 06/15/21 nitrofurantoin monohyd/m-cryst 100 mg PO ONCE PRN #14 cap 06/15/21 [Macrobid] Previous Rx's Medication Instructions Recorded cephalexin 500 mg PO QID 7 Days #28 cap 06/15/21 nitrofurantoin monohyd/m-cryst 100 mg PO ONCE PRN #14 cap 06/15/21 [Macrobid] Allergies Allergy/AdvReac Type Severity Reaction Status Date / Time No Known Allergies Allergy Unverified 06/15/21 15:37 General Stated Complaint: Urinary HEMANT: 4 Review of Systems Constitutional Constitutional: Reports as per HPI, Denies chills, Denies fever(s) and Denies poor appetite Cardiovascular Cardiovascular: Denies chest pain Respiratory Respiratory: Denies cough Gastrointestinal Gastrointestinal: Denies abdominal pain, Denies change in bowel habits, Denies nausea and Denies vomiting Genitourinary Genitourinary: Reports as per HPI Musculoskeletal Musculoskeletal: Reports as per HPI and Denies back pain Integumentary/Breasts Skin/Breast: Reports as per HPI and Denies rash [facility] Medical History Abdominal pain Anxiety and depression ASCUS (atypical squamous cells of undetermined significance) on gynecologic Papanicolaou smear complicating , antepartum Bilateral plantar fasciitis Bipolar disorder Dysuria Left hip pain Low back pain Rash Social History Smoking/Tobacco Use Status: Never Smoking risk assessment performed?: Yes Alcohol Intake: current Alcohol Intake frequency: holidays/special occasions only Drug use: Never Substance use type: does not use Do you feel safe at home: Yes Do you feel safe in your relationship?: Yes Exam Const General: cooperative, healthy appearing, comfortable, no acute distress, well developed and well groomed Nutritional Appearance: well nourished and overweight Orientation: alert and awake Resp Effort & Inspection: normal respiratory effort and no respiratory distress Auscultation: clear to auscultation bilaterally, no rales, no rhonchi and no wheezes Cardio Rate: regular rate Rhythm: regular rhythm Heart Sounds: S1 normal and S2 normal GI Inspection: normal to inspection Palpation: soft, no hepatosplenomegaly, not firm, no guarding, not rigid and nontender Back/Spine/Pelvis Back: no CVA tenderness Skin General skin exam: no rashes or lesions noted Trauma: no lacerations or abrasions Neuro General: patient alert and patient awake Cognition: normal cognition Speech: speech normal Gait: normal gait Psych Appearance: grossly normal and well kempt Mental Status: mental status grossly normal Speech and Movement: speech and movement normal Course Vital Signs Vital signs: Vital Signs Pulse 86 06/15/21 15:35 Respiratory Rate 18 06/15/21 15:35 Blood Pressure 145/96 H 06/15/21 15:35 Pulse Oximetry 99 06/15/21 15:35 Pulse 86 06/15/21 15:35 Respiratory Rate 18 06/15/21 15:35 Respiratory Effort Non-Labored 06/15/21 15:39 Blood Pressure 145/96 H 06/15/21 15:35 Blood Pressure Position Sitting 06/15/21 15:35 Pulse Oximetry 99 06/15/21 15:35 Oxygen Delivery Method Room Air 06/15/21 15:35 Oxygen Flow Rate 0 06/15/21 15:35 Pain Level 5 06/15/21 15:39 Lab/Test Results Lab/Test Results: POC- Test(urine) Negative
[2021-06-15 16:27] LABS: Bacteria Many HPF (Negative); C & S Indicated? Yes; Casts Negative LPF (Negative); Crystals Negative HPF (Negative); Epithelial Cells Few HPF (Negative); Mucus Negative (Negative); RBC 0-2 HPF (0-2)
[2021-06-15 16:48] VITALS: BP 145/96; PULSE 86; RESP 18; O2SAT 99
== END 2021-06-15 16:44 | disposition home or self-care (01) ==
PROVIDERS: Registered Nurse Emergency; Emergency Provider Physician Assistant; PCP Nurse Practitioner Family
DX: N39.0 Urinary tract infection, site not specified (principal); B96.20 Unspecified Escherichia coli [E. coli] as the cause of diseases classified elsewhere
CPT/HCPCS: 81025; 87077; 99283; 81003; 81015; 87086; 87186

== ENCOUNTER 2021-10-11 07:58 | Emergency (ER) | payer MEDICAID, SELFPAY ==
[2021-10-11 08:10] VITALS: BP 123/75; PULSE 78; RESP 18; TEMP 36.5; O2SAT 98
[2021-10-11 08:21] LABS: Bilirubin Negative (Negative); Blood Negative (Negative); Clarity Sl Cloudy (Clear); Glucose Negative (Negative); Ketones Negative (Negative); Leukocyte Esterase Small (Negative); Nitrite Positive (Negative); Specific Gravity >= 1.030 (1.005-1.025); Urobilinogen 0.2 EU/dL (Up TO 0.2)
--- NOTE | 2021-10-11 08:21 | W.ED.GENAD ---
Discharge Plan Disposition Patient Disposition: HOME Condition: Stable Discharge Details Clinical Impression: UTI (urinary tract infection) Primary Care Provider: Nadja Bearden ED Provider: Ely Hong Home Meds and New Rx's Prescriptions: New sulfamethoxazole-trimethoprim [Bactrim DS] 800-160 mg tablet 1 tab PO BID 5 Days Qty: 10 0RF phenazopyridine [Pyridium] 200 mg tablet 200 mg PO TID PRN (Reason: pain) Qty: 6 0RF nitrofurantoin monohyd/m-cryst [Macrobid] 100 mg capsule 100 mg PO ONCE Qty: 14 0RF Rx Instructions: must administer with a meal/food; take 1 tab before or after sexual intercourse Continued Nexplanon 68 mg implant 1 implant subdermal ONCE 0RF Rx Instructions: as a single dose Discharge Instructions Instructions: Urinary Tract Infection in Women (ED) Additional Instructions: Your urine sample today shows evidence of a urinary tract infection. Your urinary tract infection is being treated with the antibiotic Bactrim. Take this as directed until finished. Take the medication Pyridium to help with symptoms of discomfort, burning or pain. Be aware that this will turn your urine an orange color. You are also being sent home with a prescription for the antibiotic Macrobid to take 1 dose before or after sexual intercourse. Be sure to urinate before and after intercourse. You can try showering after intercourse to clean the genital area. Follow-up with your scheduled appointment with urology next month. Follow-up with women's wellness for further recommendations regarding your Nexplanon. Return immediately to the emergency department if you develop any worsening or new concerning symptoms. Referrals: Froy Yip MD [ [facility] STAFF PHYSICIAN] - Discharge Data Discharge Date/Time-TO BE ENTERED AT DEPARTURE: 10/11/21 09:19 Discharge Physician: Ely Hong Medical Decision Making 31-year-old female with a history of recurrent UTI presents with UTI symptoms this morning. Review of records notes that she has been seen in the ED multiple times over the past several months and diagnosed with UTI. She was last treated in May 2021 with Keflex for UTI. Several urine cultures have noted greater than 100,000 colonies of E. coli which has been pansensitive. Records note that she has been treated with Bactrim and Keflex for her UTI. She has also been placed on prophylactic Macrobid to take before or after intercourse. She has seen urology who recommended d-mannose and agreed with prophylactic Macrobid. Her vitals are within normal limits. She appears comfortable and nontoxic. Urinalysis was obtained on arrival and appears consistent with UTI but has many epithelial cells and is contaminated. She was able to provide a second urine sample which also appeared contaminated but discussed with lab and this can be sent for a urine culture. As urine cultures have shown E. coli and been pansensitive, will treat with Bactrim. She was given 1 dose here as well as a prescription for Bactrim, prophylactic Macrobid and Pyridium. Advised to follow-up with scheduled appointment with urology next month. Usual and customary return precautions given prior to discharge. Medical Records Medical records reviewed: Yes I reviewed the patient's medical records. Lab Data Lab results reviewed: Yes I reviewed the patient's lab results. Labs: Laboratory Tests Range/Units 10/11/21 10/11/21 08:09 08:45 Urine Color (Yellow) Yellow Yellow Urine Clarity (Clear) Sl Cloudy Clear Urine pH (5-8) 6.0 5.5 Ur Specific [place] (1.005-1.025) >= 1.030 H 1.010 Urine Protein (Negative) mg/dL Negative Negative Urine Ketones (Negative) mg/dL Negative Negative Urine Blood (Negative) Negative Negative Urine Nitrite (Negative) Positive H Negative Urine Bilirubin (Negative) Negative Negative Urine Urobilinogen (Up TO 0.2) EU/dL 0.2 0.2 Ur Leukocyte Esterase (Negative) Small H Negative Urine RBC (0-2) HPF 5-10 H Urine WBC (0-5) HPF >50 H Ur Epithelial Cells (Negative) HPF Many Urine Crystals (Negative) HPF Negative Urine Bacteria (Negative) HPF Many Urine Casts (Negative) LPF Negative Urine Mucus (Negative) Negative Ur Culture Indicated? No/Sq. Contamination Urine Glucose (Negative) mg/dL Negative Negative HPI General Mode of arrival: ambulatory. Date/Time Provider Initiated Documentation: 10/11/21 08:16. Limitations to Documentation: no limitations. Information obtained by: patient. HPI Narrative: Patient is a 31-year-old female with history of recurrent UTI who presents for urinary discomfort, urgency, hesitancy with some dysuria since this morning. She states the symptoms feel consistent with her usual urinary tract infection. She states she had sexual intercourse yesterday and states this is usually her trigger for UTI. She states she has seen urology for her frequent UTIs and was placed on d-mannose. She also states she has been seen several times in the emergency department since February 2021. UTI and was last treated at the end of May. She states she was placed on prophylactic Macrobid to take at the time of intercourse to prevent UTI. She states this was working but she ran out in July. She states her next appointment with urology is next month. She denies any fever, nausea, vomiting, or back pain. Related Data Home Medications Medication Instructions Recorded Confirmed etonogestrel 68 mg subdermal 1 implant SUBDERMAL ONCE 04/23/21 10/11/21 implant (Nexplanon) nitrofurantoin 100 mg PO ONCE #14 cap 10/11/21 monohydrate/macrocrystals 100 mg capsule (Macrobid) phenazopyridine 200 mg tablet 200 mg PO TID PRN #6 tab 10/11/21 (Pyridium) sulfamethoxazole 800 1 tab PO BID 5 Days #10 tab 10/11/21 mg-trimethoprim 160 mg tablet (Bactrim DS) Previous Rx's Medication Instructions Recorded nitrofurantoin 100 mg PO ONCE #14 cap 10/11/21 monohydrate/macrocrystals 100 mg capsule (Macrobid) phenazopyridine 200 mg tablet 200 mg PO TID PRN #6 tab 10/11/21 (Pyridium) sulfamethoxazole 800 1 tab PO BID 5 Days #10 tab 10/11/21 mg-trimethoprim 160 mg tablet (Bactrim DS) Allergies Allergy/AdvReac Type Severity Reaction Status Date / Time No Known Allergies Allergy Unverified 10/11/21 08:14 General Stated Complaint: Urinary HEMANT: 4 Review of Systems All systems reviewed & are unremarkable except as noted in HPI and below Constitutional Constitutional: Reports as per HPI, Denies chills and Denies fever(s) Eyes Eyes: Denies blurry vision ENT Ears, Nose, Mouth, and Throat: Denies dizziness, Denies sore throat and Denies throat swelling Cardiovascular Cardiovascular: Denies chest pain and Denies dyspnea Respiratory Respiratory: Denies cough and Denies dyspnea Gastrointestinal Gastrointestinal: Denies abdominal pain, Denies diarrhea and Denies vomiting Genitourinary Genitourinary: Denies hematuria, Reports difficulty voiding, Denies dysuria, Reports urinary hesitancy and Reports urinary urgency Musculoskeletal Musculoskeletal: Denies back pain and Denies numbness Integumentary/Breasts Skin/Breast: Denies lesions and Denies rash Neurologic Neurologic: Denies dizziness, Denies localized weakness and Denies numbness Allergic/Immunologic Allergic/Immunologic: Denies throat swelling PFSH All Active Problems (Updated 10/11/21 @ 08:45 by Ely Hong DO) UTI (urinary tract infection) (Acute) UTI (urinary tract infection) (Acute) Medical History Abdominal pain Anxiety and depression ASCUS (atypical squamous cells of undetermined significance) on gynecologic Papanicolaou smear complicating , antepartum Bilateral plantar fasciitis Bipolar disorder Dysuria Left hip pain Low back pain Rash Social History Smoking/Tobacco Use Status: Never Smoking risk assessment performed?: Yes Alcohol Intake: current Alcohol Intake frequency: holidays/special occasions only Drug use: Never Substance use type: does not use Do you feel safe at home: Yes Do you feel safe in your relationship?: Yes Exam Const General: cooperative, healthy appearing and no acute distress Orientation: alert, awake and oriented x3 HENMT Head: normal to inspection Mouth: oral mucosae normal Eyes General: appearance normal, both eyes and all related structures Neck Neck: normal visual inspection Resp Effort & Inspection: normal respiratory effort and able to speak in complete sentences Auscultation: clear to auscultation bilaterally Cardio Rate: regular rate Rhythm: regular rhythm GI Inspection: normal to inspection and obesity Palpation: soft, not firm, no guarding, not rigid and nontender Auscultation: hypoactive bowel sounds Back/Spine/Pelvis Back: no CVA tenderness Skin General skin exam: no rashes or lesions noted Neuro General: patient alert, patient awake and patient oriented x3 Motor: muscle tone normal throughout Extrem General: normal to inspection and full ROM Psych Appearance: grossly normal Affect: normal affect Course Vital Signs Vital signs: Vital Signs Temperature 97.7 F 10/11/21 08:10 Pulse 78 10/11/21 08:10 Respiratory Rate 18 10/11/21 08:10 Blood Pressure 123/75 10/11/21 08:10 Pulse Oximetry 98 10/11/21 08:10 Temperature 97.7 F 10/11/21 08:10 Temperature Source Temporal Artery Scan 10/11/21 08:10 Pulse 78 10/11/21 08:10 Respiratory Rate 18 10/11/21 08:10 Respiratory Effort Non-Labored 10/11/21 08:14 Blood Pressure 123/75 10/11/21 08:10 Blood Pressure Position Sitting 10/11/21 08:10 Pulse Oximetry 98 10/11/21 08:10 Oxygen Delivery Method Room Air 10/11/21 08:10 Oxygen Flow Rate 0 10/11/21 08:10 Pain Level 2 10/11/21 08:14 Lab/Test Results Lab/Test Results: POC- Test(urine) Negative
[2021-10-11 08:29] LABS: Bacteria Many HPF (Negative); C & S Indicated? No/Sq. Contamination; Casts Negative LPF (Negative); Crystals Negative HPF (Negative); Epithelial Cells Many HPF (Negative); Mucus Negative (Negative); WBC >50 HPF (0-5)
[2021-10-11] MEDS: Sulfameth/Trimeth DS TAB 1 TAB PO (08:48)
[2021-10-11 09:04] LABS: Bilirubin Negative (Negative); Blood Negative (Negative); Clarity Clear (Clear); Glucose Negative (Negative); Ketones Negative (Negative); Leukocyte Esterase Negative (Negative); Nitrite Negative (Negative); Urobilinogen 0.2 EU/dL (Up TO 0.2); pH 5.5 (5-8)
== END 2021-10-11 09:19 | disposition home or self-care (01) ==
PROVIDERS: Emergency Provider Physician Assistant; PCP Nurse Practitioner Family
DX: N39.0 Urinary tract infection, site not specified (principal)
CPT/HCPCS: 81025; 99283; 81003; 81015

== ENCOUNTER 2021-12-10 15:27 | Emergency (ER) | payer MEDICAID, SELFPAY ==
[2021-12-10 15:29] VITALS: BP 145/88; PULSE 78; RESP 14; TEMP 37; O2SAT 100
[2021-12-10 15:54] LABS: Bilirubin Negative (Negative); Blood Negative (Negative); Clarity Clear (Clear); Glucose Negative (Negative); Ketones Negative (Negative); Leukocyte Esterase Negative (Negative); Nitrite Negative (Negative); Specific Gravity >= 1.030 (1.005-1.025); Urobilinogen 0.2 EU/dL (Up TO 0.2); pH 5.5 (5-8)
--- NOTE | 2021-12-10 15:58 | ED.GENADUL_ITS ---
Discharge Plan Disposition Patient Disposition: HOME Condition: Stable Discharge Details Clinical Impression: Dysuria Primary Care Provider: Nadja Bearden ED Provider: Jean-Claude Dowling Home Meds and New Rx's Prescriptions: New nitrofurantoin monohyd/m-cryst [Macrobid] 100 mg capsule 100 mg PO Q12H 5 Days Qty: 10 0RF Rx Instructions: must administer with a meal/food Continued Nexplanon 68 mg implant 1 implant subdermal ONCE Rx Instructions: as a single dose Discharge Instructions Instructions: Dysuria (ED) Additional Instructions: At this time your urine shows no signs of urinary tract infection that is concerning for possible dehydration/and concentrated urine. Over the next 24 to 48 hours please drink 2 to 3 L of water to see if this helps resolve your symptoms. You may also take [id number] AZO and drink cranberry juice to see if this also helps your symptoms. At this time we have sent a culture for your urine and you have been prescribed a prescription for antibiotics that you should only use if you have worsening symptoms after hydration or if we contact you to inform you that your culture came back positive for infection. Feel free to return to the emergency department if you develop any abdominal pain, severe nausea with persistent vomiting, new or worsening symptoms that were not present today. Referrals: Nadja Bearden [Primary Care Provider] - (As needed for reassessment) Medical Decision Making Patient presenting to the emergency department for chief complaint of urinary tract infectious type symptoms. She states that she has had 7 UTIs since February and has seen urology. Yesterday patient started having symptoms return. Denies any precipitating event. Physical exam is unremarkable for any concerning findings for pyelonephritis, systemic illness, and patient denies any vaginal complaints. Review of labs show that patient is not and urinalysis is unremarkable at this time for infection but does show concentration. I question if possible discomfort is secondary to dehydration so will encourage patient to hydrate. Given patient's history I will plan on sending a urine culture and giving patient a pocket prescription for antibiotics with clear instructions to only use if symptoms worsen or if we contact her with culture results. After discussion of diagnosis and plan of care patient has no further needs, questions, or concerns and states clear understanding to return to the emergency department for any worsening symptoms. Upon discussing discharge with patient she then brought up the question of a yeast infection. While patient denies any vaginal discharge or irritation we did discuss signs and symptoms to watch for and I did offer a vaginal examination. At this time patient is deferring that examination so she was encouraged to use Monistat [id number] if she is concerned for this or return for a vaginal exam at that time. HPI General Mode of arrival: ambulatory . Date/Time Provider Initiated Documentation: 12/10/21 15:37 . Limitations to Documentation: no limitations . Information obtained by: patient . History of Present Illness 31 year old F presents to the emergency department with the chief complaint of UTI symptoms, described as mild, with intensity rated at 4. Quality is described as burning, and is localized to the genitals. Patient reports no radiation. Patient started experiencing this day(s) (1) and it has been constant. No relieving factors improve symptom(s), No exacerbating factors reported . Patient notes no other symptoms.. Patient did receive the following treatments prior to arrival, none Related Data Home Medications Medication Instructions Recorded Confirmed etonogestrel 68 mg subdermal 1 implant subdermal ONCE 04/23/21 12/10/21 implant (Nexplanon) nitrofurantoin 100 mg PO Q12H 5 days #10 caps 12/10/21 monohydrate/macrocrystals 100 mg capsule (Macrobid) Previous Rx's Medication Instructions Recorded nitrofurantoin 100 mg PO Q12H 5 days #10 caps 12/10/21 monohydrate/macrocrystals 100 mg capsule (Macrobid) Allergies Allergy/AdvReac Type Severity Reaction Status Date / Time sulfamethoxazole AdvReac Mild vomiting Unverified 12/10/21 15:35 [From Bactrim] trimethoprim [From Bactrim] AdvReac Mild vomiting Unverified 12/10/21 15:35 General Stated Complaint: Urinary HEMANT: 4 Review of Systems Constitutional Constitutional: Denies body ache(s), Denies chills, Denies fever(s), Denies malaise and Denies weakness Cardiovascular Cardiovascular: Denies chest pain Respiratory Respiratory: Reports system reviewed and no additional complaints, except as documented Gastrointestinal Gastrointestinal: Denies abdominal pain, Denies nausea and Denies vomiting Genitourinary Genitourinary: Reports as per HPI, Denies hematuria, Reports dysuria, Denies pelvic pain, Reports urinary urgency, Denies vaginal discharge, Denies vaginal odor and Denies vaginal pruritus Musculoskeletal Musculoskeletal: Denies back pain Neurologic Neurologic: Denies confusion and Denies weakness Psychiatric Psychiatric: Denies confusion PFSH All Active Problems (Updated 12/10/21 @ 16:04 by Jean-Claude Dowling NP) Dysuria (Acute) UTI (urinary tract infection) (Acute) Medical History Abdominal pain Anxiety and depression ASCUS (atypical squamous cells of undetermined significance) on gynecologic Papanicolaou smear complicating , antepartum Bilateral plantar fasciitis Bipolar disorder Dysuria Left hip pain Low back pain Rash Social History Smoking/Tobacco Use Status: Never Smoking risk assessment performed?: Yes Alcohol Intake: current Alcohol Intake frequency: holidays/special occasions only Drug use: Never Substance use type: does not use Do you feel safe at home: Yes Do you feel safe in your relationship?: Yes History History 0 Para Hx # Term Pregnancies Multiple births Hx # Pregnancies Ectopic pregnancies AB induced Hx Number of Living Children AB spontaneous Exam Const General: cooperative and no acute distress Orientation: alert, awake and oriented x3 Resp Effort & Inspection: normal respiratory effort and able to speak in complete sentences Auscultation: clear to auscultation bilaterally Cardio Rate: regular rate Rhythm: regular rhythm Heart Sounds: S1 normal and S2 normal GI Palpation: nontender Back/Spine/Pelvis Back: no CVA tenderness Neuro General: patient alert, patient awake and patient oriented x3 Extrem General: capillary refill normal Course Vital Signs Vital signs: Vital Signs Temperature 37 C 12/10/21 15:29 Pulse 78 12/10/21 15:29 Respiratory Rate 14 12/10/21 15:29 Blood Pressure 145/88 H 12/10/21 15:29 Pulse Oximetry 100 12/10/21 15:29 Temperature 37 C 12/10/21 15:29 Temperature Source Skin 12/10/21 15:29 Pulse 78 12/10/21 15:29 Respiratory Rate 14 12/10/21 15:29 Respiratory Effort 12/10/21 15:36 Blood Pressure 145/88 H 12/10/21 15:29 Blood Pressure Position Sitting 12/10/21 15:29 Pulse Oximetry 100 12/10/21 15:29 Oxygen Delivery Method Room Air 12/10/21 15:29 Oxygen Flow Rate 0 12/10/21 15:29 Pain Level 2 12/10/21 15:37 Comment 12/10/21 15:29 Lab/Test Results Lab/Test Results: POC- Test(urine) Negative
== END 2021-12-10 16:21 | disposition home or self-care (01) ==
PROVIDERS: Emergency Provider Nurse Practitioner Family; PCP Nurse Practitioner Family
DX: R30.0 Dysuria (principal)
CPT/HCPCS: 81025; 99283; 81003; 87086

== ENCOUNTER 2022-05-02 20:14 | Emergency (ER) | payer MEDICAID, SELFPAY ==
[2022-05-02 20:25] VITALS: BP 137/83; PULSE 130; RESP 16; TEMP 38.3; O2SAT 97
--- NOTE | 2022-05-02 20:58 | ED.GENADUL_ITS ---
Discharge Plan Disposition Patient Disposition: HOME Condition: Good Discharge Details Clinical Impression: COVID-19, Viral illness, Chills Primary Care Provider: Nadja Bearden ED Provider: Chuy Horton Home Meds and New Rx's Prescriptions: No Action Nexplanon 68 mg implant 1 implant subdermal ONCE Rx Instructions: as a single dose Discharge Instructions Instructions: Viral Syndrome (ED) Additional Instructions: At this time your urinalysis is returned negative. You do have COVID-19. However please also continue to monitor your symptoms closely and if you develop any other new symptoms and do not feel any improvement you may need to be reassessed for potential other etiology. Take Tylenol and Motrin as needed for pain. Get plenty of sleep. Take the next 2 days off. Drink plenty of fluids and stay well-hydrated. Please drink 10 to 12 cups of water / electrolyte solution per day. If you notice any worsening of your symptoms, or any new symptoms such as vomiting, diarrhea, fever, chills, shortness of breath, chest pain, numbness, weakness, or fainting , please return immediately to the emergency department for reevaluation. Please follow up with your primary care provider as soon as possible for reassessment and reevaluation. As always, it was a pleasure participating in your medical care today. Referrals: Nadja Bearden [Primary Care Provider] - Medical Decision Making 32-year-old female presents today for evaluation of chills. Patient states that all day long she has had chills and aches. She states very clearly that these are her only symptoms. She does admit to mild fatigue. She denies sore throat, cough, chest pain, urinary frequency, dysuria, headache, neck stiffness, vomiting, diarrhea, abdominal pain, or other sick contacts. She has not received her flu shot this year. She has not had a COVID-vaccine. She has not yet had COVID either. She denies any other complaints at this time. She has had previous urinary tract infections, but states that this feels slightly dissimilar. She did take ibuprofen earlier today just before coming in. No other complaints at this time. No other modifying factors. Physical exam demonstrates a well-appearing female, however she is febrile with mild tachycardia. She denies any concerning symptoms otherwise. No chest pain no pleuritic chest pain. Symptoms inconsistent with PE. No cough or shortness of breath. Lung sounds are clear. No meningeal signs. Differential is highest for COVID, flu, or viral etiology. UTI is also high in the differential. Patient does not want any blood work or fluids at this time. She has declined these interventions. We will test for flu headache, get a UA, give Tylenol. 10:40 PM UA is negative for infection. Patient's COVID test is positive. This came back as she was leaving the department and she was informed of the results. Patient remained stable. I did offer her Paxlovid. Patient did ask if it would make her nauseous, and I did discuss with her that this could be one of the potential side effects. Patient has requested to hold off on antivirals for the time being. She states that she will return for the medication if her symptoms worsen. I have extensively reviewed the treatment plan and discharge inst ructions with the patient. I have addressed all patient concerns at this time. The patient was made aware of what symptoms to monitor for that would warrant a return to the emergency department. Discussed the plan with the patient, they demonstrate verbal understanding and agreement with our assessment and plan at this time. The documentation in this chart was dictated using [employer] dictation software. Please excuse any dictation errors. HPI General Date/Time Provider Initiated Documentation: 05/02/22 20:25 . HPI Narrative: 32-year-old female presents today for evaluation of chills. Patient states that all day long she has had chills and aches. She states very clearly that these are her only symptoms. She does admit to mild fatigue. She denies sore throat, cough, chest pain, urinary frequency, dysuria, headache, neck stiffness, vomiting, diarrhea, abdominal pain, or other sick contacts. She has not received her flu shot this year. She has not had a COVID-vaccine. She has not yet had COVID either. She denies any other complaints at this time. She has had previous urinary tract infections, but states that this feels slightly dissimilar. She did take ibuprofen earlier today just before coming in. No other complaints at this time. No other modifying factors. Related Data Home Medications Medication Instructions Recorded Confirmed etonogestrel 68 mg subdermal 1 implant subdermal ONCE 04/23/21 05/02/22 implant (Nexplanon) Allergies Allergy/AdvReac Type Severity Reaction Status Date / Time sulfamethoxazole AdvReac Mild vomiting Unverified 05/02/22 20:28 [From Bactrim] trimethoprim [From Bactrim] AdvReac Mild vomiting Unverified 05/02/22 20:28 General Stated Complaint: GenMedical HEMANT: 4 Review of Systems All systems reviewed & are unremarkable except as noted in HPI and below PFSH All Active Problems (Updated 05/02/22 @ 22:42 by Chuy Horton DO) Viral illness (Acute) Chills (Acute) COVID-19 (Acute) Encounter for counseling regarding contraception (Acute) Nexplanon in place (Acute) UTI (urinary tract infection) (Acute) Medical History Abdominal pain Anxiety and depression ASCUS (atypical squamous cells of undetermined significance) on gynecologic Papanicolaou smear complicating , antepartum Bilateral plantar fasciitis Bipolar disorder Dysuria Left hip pain Low back pain Rash Social History Smoking/Tobacco Use Status: Never Smoking risk assessment performed?: Yes Alcohol Intake: current Alcohol Intake frequency: holidays/special occasions only Drug use: Never Substance use type: does not use Do you feel safe at home: Yes Do you feel safe in your relationship?: Yes History History 0 Para Hx # Term Pregnancies Multiple births Hx # Pregnancies Ectopic pregnancies AB induced Hx Number of Living Children AB spontaneous Exam Narrative Exam Narrative: 1.Const: Well-nourished, Well-developed, appearing stated age 2.Eyes: PERRL, no conjunctival injection, and symmetrical lids. 3.ENT: Atraumatic external nose and ears. Moist MM. Neck: Symmetric, trachea midline, No thyromegaly. Patient demonstrates good movement of cervical neck. There is no nuchal rigidity, no nuchal tenderness. Patient is able to flex the neck without any difficulty or significant pain. Negative Kernig's and Brudzinski sign. No erythema in the posterior oropharynx. No tonsillar exudate. No evidence of otitis media. 4.CVS: +S1/S2, No murmurs or gallops. Peripheral pulses 2+ and equal in all extremities. Brisk capillary refill in all extremities. 5.RESP: Unlabored respiratory effort. Clear to auscultation bilaterally. No wheezes rales or rhonchi 6.GI: Soft, Nontender/Nondistended, No hepatosplenomegaly. No guarding or rebound. 7.MSK: Normocephalic/Atraumatic, Extremities w/o deformity or ttp No cyanosis or clubbing, Normal movement of all extremities 8.Skin: Warm, Dry. No rashes or lesions. 9.Neuro: naval inspector II-XII grossly intact. Sensation grossly intact, no focal neurologic deficits. 10.Psych: (AAO) x3. Appropriate mood and affect Course Vital Signs Vital signs: Vital Signs Temperature 38.3 C H 05/02/22 20:25 Pulse 130 H 05/02/22 20:25 Respiratory Rate 16 05/02/22 20:25 Blood Pressure 137/83 05/02/22 20:25 Pulse Oximetry 97 05/02/22 20:25 Temperature 38.3 C H 05/02/22 20:25 Temperature Source Oral 05/02/22 20:25 Pulse 130 H 05/02/22 20:25 Respiratory Rate 16 05/02/22 20:25 Respiratory Effort 05/02/22 20:25 Blood Pressure 137/83 05/02/22 20:25 Blood Pressure Position Sitting 05/02/22 20:25 Pulse Oximetry 97 05/02/22 20:25 Oxygen Delivery Method Room Air 05/02/22 20:25 Oxygen Flow Rate 0 05/02/22 20:25 Pain Level 2 05/02/22 20:25
[2022-05-02 21:02] VITALS: RESP 24
[2022-05-02 21:13] LABS: Bilirubin Negative (Negative); Blood Negative (Negative); Clarity Clear (Clear); Glucose Negative (Negative); Ketones Negative (Negative); Leukocyte Esterase Negative (Negative); Nitrite Negative (Negative); Specific Gravity 1.025 (1.005-1.025); Urobilinogen 0.2 EU/dL (Up TO 0.2)
[2022-05-02 21:14] VITALS: TEMP 36.5
[2022-05-02] MEDS: Acetaminophen 500 MG TAB 1000 MG PO (21:14)
[2022-05-02 21:46] LABS: Influenza A PCR Negative (Negative); Influenza B PCR Negative (Negative); RSV PCR Negative (Negative)
[2022-05-02 21:47] LABS: COVID-19 PCR Positive (Negative)
[2022-05-02 22:45] VITALS: BP 124/78; PULSE 121; RESP 17; TEMP 37.2; O2SAT 97
== END 2022-05-02 22:36 | disposition home or self-care (01) ==
PROVIDERS: Emergency Provider Student in an Organized Health Care Education/Training Program; PCP Nurse Practitioner Family
DX: U07.1 COVID-19 (principal); Z28.310 Unvaccinated for COVID-19
CPT/HCPCS: 87637; 99282; 81003; 99284

== ENCOUNTER 2024-09-03 11:10 | Emergency (ER) | payer SELFPAY ==
[2024-09-03 11:32] VITALS: BP 150/85; PULSE 129; RESP 12; TEMP 37.5; O2SAT 97
--- OUTSIDE RECORDS SUMMARY | 2024-09-03 11:52 | XMS_ITS | Referral Summary ---
Author Organization [facility] Address [address] [place] [address] Care Team Providers Care Bag Turner Name Role Phone Unknown, Provider Primary Care Provider Unava ilable Social History Tobacco Use Types Packs/Day Years Used Date Smoking Tobacco: Never Assessed Comments Unknown Sex and Gender Information Value Date Recorded Sex Assigned at Not on file Legal Sex Female 18:55 EST Gender Identity Not on file Sexual Orientation Not on file Plan of Treatment Not on file Care Teams Bag Turner Relationship Specialty Start Date End Date Unknown, Provider, PCP - General 08/24/11
--- OUTSIDE RECORDS SUMMARY | 2024-09-03 11:52 | XMS_ITS | Clinical Summary ---
Author Organization [facility] Address [address] [place] [address] Care Team Providers Care Automated Manufacturing Instructor Name Role Phone Unknown, Provider MD Primary Care Provider Unava ilable Social History Tobacco Use Types Packs/Day Years Used Date Smoking Tobacco: Never Assessed Comments Unknown Sex and Gender Information Value Date Recorded Sex Assigned at Not on file Legal Sex Female 18:55 EST Gender Identity Not on file Sexual Orientation Not on file Plan of Treatment Health Maintenance Due Date Last Done Comments Hepatitis C Screen 1990 Hepatitis B Vaccine (1 of 3 - 19+ 3-dose series) 02/17 COVID-19 Vaccine ( season) 2024 Care Teams Automated Manufacturing Instructor Relationship Specialty Start Date End Date Unknown, Provider, PCP - General 08/24/11
--- OUTSIDE RECORDS SUMMARY | 2024-09-03 11:52 | XMS_ITS | Encounter Summary ---
Author Organization [facility] Address [address] [place] [address] Care Team Providers Care Locksmith Apprentice Name Role Phone Unknown, Provider Primary Care Provider Unava ilable Encounter Details Date Type Department Care Team (Late st Contact Info) Description 08/20/2011 Results Only [facility] ([facility] [address] [place] [address], [place] [id number] Michelle Trivedi, KAILEE [address] [place] [address] Social History Tobacco Use Types Packs/Day Years Used Date Smoking Tobacco: Never Assessed Comments Unknown Sex and Gender Information Value Date Recorded Sex Assigned at Not on file Legal Sex Female 18:55 EST Gender Identity Not on file Sexual Orientation Not on file documented as of this encounter Plan of Treatment Not on file documented as of this encounter Procedures Procedure Name Priority Date/Time Associated Diagnosis Comments PAP TEST- RESULT ONLY Routine 08/20/2011 0:00 EST documented in this encounter Results * PAP TEST- RESULT ONLY (08/20/2011 0:00 EST) Pathology Report: CYTOPATHOLOGY REPORT Reports generated via electronic interface contain original data; however they are lacking the format of the original report. Caution should be taken when reading/interpreti ng unformatted reports. Name: ? GABRIEL LISA Benedicto ? Accession #: ? [id number] : ? 1990 (Age: 21) ??F ?Collect Date: ? 08/20/2011 Location: ? [facility] ? Receive Date: ? 08/24/2011 Provider: ?MICHELLE TRIVEDI ACCOUNT INSTALLATION SPECIALIST Copy to: ? Specimen/Source: ?Pap Test, Cervix/Endocervix, ThinPrep Imaging System with manual evaluation Last Menstrual Period: ? 07/29/2011 Hormonal/Contracep tive Status: ? Control Pills ? SPECIMEN ADEQUACY ? Satisfactory for Evaluation - transformation zone component absent - scant squamous epithelial component secondary to excessive blood GENERAL CATEGORIZATION ? Negative for Intraepithelial Lesion or Malignancy ? Document reviewed and electronically signed by: ? LORENZO Colmenares(ASCP) ? Report Date: ??08/27/2011 08:24 End of Report TERRANCE KENNEY 08/20/2011 08/24/2011 us Michelle Trivedi ACCOUNT INSTALLATION SPECIALIST PATHOLOGY ORDERABLES Final Res ult TERRANCE KENNEY [address] [place] [address] documented in this encounter Visit Diagnoses Not on filedocumented in this encounter Care Teams Locksmith Apprentice Relationship Specialty Start Date End Date Unknown, Provider, PCP - General 08/24/11 documented as of this encounter
--- OUTSIDE RECORDS SUMMARY | 2024-09-03 11:52 | XMS_ITS | Encounter Summary ---
Author Organization [facility] Address [address] [place] [address] Care Team Providers Care Customer Technical Services Manager Name Role Phone Unknown, Provider MD Primary Care Provider Unava ilable Encounter Details Date Type Department Care Team (Latest Contact Info) Description 11/09/2016 8:03 EDT - 11/09/2016 23:59 EDT Hospital Encounter [address] [address] Unknown, Provider, Discharge Disposition: Home or Self Care Social History Tobacco Use Types Packs/Day Years Used Date Smoking Tobacco: Never Assessed Comments Unknown Sex and Gender Information Value Date Recorded Sex Assigned at Not on file Legal Sex Female 18:55 EST Gender Identity Not on file Sexual Orientation Not on file documented as of this encounter Discharge Disposition Disposition Code Departure Means Destination Home or Self [facility] documented in this encounter Plan of Treatment Not on file documented as of this encounter Visit Diagnoses Not on filedocumented in this encounter Care Teams Customer Technical Services Manager Relationship Specialty Start Date End Date Unknown, Provider, PCP - General 08/24/11 documented as of this encounter
--- OUTSIDE RECORDS SUMMARY | 2024-09-03 11:52 | XMS_ITS | Encounter Summary ---
Author Organization [facility] Address [address] [place] [address] Care Team Providers Care Mobile Ui/Ux Designer Name Role Phone Unknown, Provider Primary Care Provider Unava ilable Encounter Details Date Type Department Care Team (Late st Contact Info) Description 05/23/2020 Results Only [facility] [address] [place], [place] [phone] Raymond Corrales MD [address] [facility] [address] [place] [address] Social History Tobacco Use Types Packs/Day Years [...] Name Priority Date/Time Associated Diagnosis Comments PAP TEST (GYNECOLOGICAL CYTOLOGY) - [facility] Routine 05/23/2020 15:07 EST documented in this encounter Results * PAP TEST (GYNECOLOGICAL CYTOLOGY) - [facility] (05/23/2020 15:07 EST) Cytology Review ? (NOTE) NAME: LISA GABRIEL /AGE/SEX: 1990 (Age: 30) ?? F CLIENT: [facility] ORDER HCP: Raymond Corrales ([facility]) DATE COLLECTED: 05/23/2020 DATE RECEIVED: 05/30/2020 DATE REPORTED: 06/04/2020 LOCATION: PU / CT OR PATHOLOGIST: KODY [place], CT (ASCP) INTERPRETATION: SPECIMEN ADEQUACY: A. ??SATISFACTORY FOR EVALUATION; Endocervical/trans formation zone component present. DESCRIPTIVE DIAGNOSIS: A. ??Negative for Intraepithelial Lesion or Malignancy. This Pap test was evaluated with the assistance of the ThinPrep Pap Test Imaging System. HUMAN PAPILLOMAVIRUS (HPV) DNA PROBE, ? HPV RESULT NEGATIVE Human Papilloma Virus (HPV) DNA Probe Reference Range: The high-risk HPV detects HPV genotypes 16,18,31,33,35,39, 45,51,52,56,58,59, 66 and 68 which are associated with cervical cancer and its precursor lesions. However, cross-reactions with other genotypes may occur. Results should be correlated with cytologic and histologic findings. This test detects DNA by a Real Time Polymerase Chain Reaction (RT-PCR) method and it detects the presence of adequate cellularity as a condition of result validity. SPECIMEN SOURCE: A: ??Cervical- Endocervical RECEIVED: thin prep vial x 1 DATE OF LAST MENSTRUATION: NOT PROVIDED MENSTRUAL/PREG. HISTORY: Not given PREVIOUS TREATMENT: Not given PRIORITY: Screening Pap PERTINENT CLINICAL DATA: COMMENT #1: [id number] HPV High Risk Testing to be done regardless of diagnosis Contraception:: Yes [facility] 05/23/2020 15:0 7 EST 05/30/2020 15:07 EST us Raymond Corrales MD PATHOLOGY ORDERABLES Fi nal Result [facility] documented in this encounter Visit Diagnoses Not on filedocumented in this encounter Care Teams Mobile Ui/Ux Designer Relationship Specialty Start Date End Date Unknown, Provider, PCP - General 08/24/11 documented as of this encounter
--- OUTSIDE RECORDS SUMMARY | 2024-09-03 11:52 | XMS_ITS | Encounter Summary ---
Author Organization [facility] Address [address] [place] [id number] Care Team Providers Care Veterinarian Epidemiologist Name Role Phone Unknown, Provider Primary Care Provider Unava ilable Encounter Details Date Type Department Care Team (Late st Contact Info) Description 05/11/2021 Lab Requisition [facility] Pathology & Laboratory Medicine - [facility] [address] [place], [place] [phone] Outr Resulting Lab, Provider Social History Tobacco Use Types Packs/Day Years [...] Procedure Name Priority Date/Time Associated Diagnosis Comments CHLAMYDIA/N. GONORRHOEAE AMPLIFIED NUCLEIC ACID Routine 05/10/2021 12:05 EDT documented in this encounter Results * CHLAMYDIA/N. GONORRHOEAE AMPLIFIED RNA (05/10/2021 12:05 EDT) Neisseria gonorrhoeae Result Negative Negative 05/12/2021 15:27 EDT [facility] Chlamydia trachomatis Result Negative Negative 05/12/2021 15:27 EDT [facility] Swab ENTIRE WALL OF CERVIX / Unknown 05/10/2021 12:05 EDT 05/11/2021 16:37 EDT us Provider Outr Resulting Lab MICROBIOLOGY - GENER AL ORDERABLES Final Result [facility] [address] [place] [address] documented in this encounter Visit Diagnoses Not on filedocumented in this encounter Care Teams Veterinarian Epidemiologist Relationship Specialty Start Date End Date Unknown, Provider, PCP - General 08/24/11 documented as of this encounter
--- OUTSIDE RECORDS SUMMARY | 2024-09-03 11:52 | XMS_ITS | Encounter Summary ---
Author Organization [facility] Address [address] [place] [address] Care Team Providers Care Health Promotion Coordinator Name Role Phone Unknown, Provider Primary Care Provider Unava ilable Encounter Details Date Type Department Care Team (Late st Contact Info) Description 04/19/2019 Results Only [facility] [phone] Romie Bearden, VASQUEZ [address] [place], [place] [phone] Social History Tobacco Use Types Packs/Day Years [...] Diagnosis Comments PAP TEST- RESULT ONLY Routine 04/19/2019 0:00 EDT documented in this encounter Results * PAP TEST- RESULT ONLY (04/19/2019 0:00 EDT) Pathology Report: CYTOPATHOLOGY REPORT Reports generated via electronic interface contain original data; however they are lacking the format of the original report. Caution should be taken when reading/interpreti ng unformatted reports. Name: ? GABRIEL LISA R ? Accession #: ? [id number] ? : ? 1990 (Age: 29) ??F ?Collect Date: ? 04/19/2019 ? Location: ? [facility] ? Receive Date: ? 04/20/2019 ? Provider: ROMIE BEARDEN BODY MAKER Copy to: ? Final Report SPECIMEN ADEQUACY ? Satisfactory for Evaluation - transformation zone component absent GENERAL CATEGORIZATION ? Negative for Intraepithelial Lesion or Malignancy INTERPRETATION ? Reactive cellular changes associated with inflammation present (includes repair). Hormonal/Contracep tive status: Yes Other: Additional clinical information: Z00.00 Z12.4 Z11.51 Specimen/Source: ??Pap Test, Cervix, ThinPrep Imaging System with manual evaluation Document reviewed and electronically signed by: ? ANIRUDH ZARCO MD ? Report ??Date: 04/24/2019 09:55 HPV with Pap Test ? Date Ordered: ? 04/24/2019 ? Status: ?? Signed Out ?Date Complete: ? 04/25/2019 ? By: ??System Interface ? Date Reported: ? 04/25/2019 ? Interpretation RESULT: POSITIVE FOR HIGH OR INTERMEDIATE RISK HPV. E6 OR E7 mRNA from one or more types of HPV types 16,18,31, 33,35,39,45,51,52, 56,58,59,66, and 68 is detected by multiple launch rocket system crewmember mediated amplification. High and intermediate risk HPV types are associated with most squamous intraepithelial lesions and cervical cancers. Comments Document reviewed and electronically signed by: ? System Interface ? Report date: 04/25/2019 By the signature above, the attending physician certifies that he/she has personally conducted a gross and/or microscopic examination of the described specimens and rendered or confirmed the above diagnosis. End of Report [facility] 04/19/2019 04/20/2019 Romie Bearden BODY MAKER PATHOLOGY ORDERABLES Final Res ult [facility] [address] [place] [address] documented in this encounter Visit Diagnoses Not on filedocumented in this encounter Care Teams Health Promotion Coordinator Relationship Specialty Start Date End Date Unknown, Provider, PCP - General 08/24/11 documented as of this encounter
--- OUTSIDE RECORDS SUMMARY | 2024-09-03 11:52 | XMS_ITS | Encounter Summary ---
Author Organization [facility] Address [address] [place] [address] Care Team Providers Care General Superintendent Name Role Phone Unknown, Provider MD Primary Care Provider Unava ilable Encounter Details Date Type Department Care Team (Late st Contact Info) Description 11/09/2016 Results Only [facility] [phone] Tuyet Patten MD [address] [place] [address] [place] [address] Social History Tobacco Use Types Packs/Day Years [...] Procedure Name Priority Date/Time Associated Diagnosis Comments SURGICAL PATHOLOGY Routine 11/09/2016 8:55 EDT documented in this encounter Results * SURGICAL PATHOLOGY (11/09/2016 8:55 EDT) Pathology Report: SURGICAL PATHOLOGY REPORT Reports generated via electronic interface contain original data; however they are lacking the format of the original report. Caution should be taken when reading/interpret ing unformatted reports. Name: ? HARVEY LISA R ? Accession #: ? [id number] ? : ? 1990 (Age: 26) ??F ? Collect Date: ? 11/09/2016 ? Location: ? [facility] ? Receive Date: ? 11/10/2016 ? Provider: TUYET PATTEN MD Copy to: ROMIE OKEEFE FOOD AND BEVERAGE MANAGER ? Final Pathologic Diagnosis: A. ENDOCERVIX, CURETTAGE: - ??Benign endocervical glands with reactive epithelial changes. B. CERVIX, 5 O'CLOCK, BIOPSY: - ??Benign endo- and ectocervix tissue with reactive epithelial changes and focal microglandular hyperplasia. Document reviewed and electronically signed by: ISIAH KEMP MD Report ??Date: 11/11/2016 14:19 By the signature above, the attending physician certifies that he/she has personally conducted a gross and/or microscopic examination of the described specimens and rendered or confirmed the above diagnosis. Specimen(s) Received: A. ??Endocervical biopsy B. ??Cervix bx at 5 o'clock Clinical History: Colposcopy; 09/28/16 Pap ASCUS (+) HPV; LMP: 10/13/16, control pills Gross Description: A. ?Received in formalin labelled with proper patient identification (initials N, L) and endocervical curettage is an aggregate of blood-tinged mucus, 0.9 x 0.8 x 0.3 cm. Entirely submitted in A1. B. ?Received in formalin labelled with proper patient identification (initials N, L) and cervix bx at 5 o'clock is a brown-zamarripa soft tissue, 0.3 x 0.2 x 0.2 cm with admixed mucus aggregating 0.4 x 0.4 x 0.3 cm. Entirely submitted in B1. JUAN Maria (ASCP) 11/10/2016 9:28 AM End of Report [facility] 11/09/2016 8:55 EDT 11/10/2016 8:55 EDT us Tuyet Patten MD PATHOLOGY ORDERABLES Final Resu lt [facility] [address] [place] [address] documented in this encounter Visit Diagnoses Not on filedocumented in this encounter Care Teams General Superintendent Relationship Specialty Start Date End Date Unknown, Provider, PCP - General 08/24/11 documented as of this encounter
--- OUTSIDE RECORDS SUMMARY | 2024-09-03 11:52 | XMS_ITS | Encounter Summary ---
Author Organization [facility] Address [address] [place] [address] Care Team Providers Care Manager Switch Name Role Phone Unknown, Provider Primary Care Provider Unava ilable Encounter Details Date Type Department Care Team (Late st Contact Info) Description 09/28/2016 Results Only [facility] Adult Primary Care - [address] [address] Romie Bearden FNP [address] [place] [address] Social History Tobacco Use Types Packs/Day Years [...] Diagnosis Comments PAP TEST- RESULT ONLY Routine 09/28/2016 0:00 EDT documented in this encounter Results * PAP TEST- RESULT ONLY (09/28/2016 0:00 EDT) Pathology Report: CYTOPATHOLOGY REPORT Reports generated via electronic interface contain original data; however they are lacking the format of the original report. Caution should be taken when reading/interpreti ng unformatted reports. Name: ? GABRIEL LISA Benedicto ? Accession #: ? [id number] ? : ? 1990 (Age: 26) ??F ?Collect Date: ? 09/28/2016 ? Location: ? [facility] ? Receive Date: ? 09/30/2016 ? Provider: ROMIE BEARDEN GASOLINE TESTER Copy to: ? Final Report SPECIMEN ADEQUACY ? Satisfactory for Evaluation - transformation zone component present GENERAL CATEGORIZATION ? Epithelial Cell Abnormality INTERPRETATION ? Squamous Cell Abnormality - Atypical squamous cells, undetermined significance (ASC-US). EDUCATIONAL NOTES/RECOMMENDATI ONS ? [facility] recommends following ASCCP's 2012 Updated Consensus Guidelines for the Management of Abnormal Cervical Cancer Screening Tests and Cancer Precursors (JLGTD, 2013; 17(5):S1-S27). ??Consensus guidelines are available online at www.asccp.org. Last Menstrual Period: 07/06/2016 Hormonal/Contracep tive status: Oral contraceptives Specimen/Source: ??Pap Test, Cervix, ThinPrep Imaging System with manual evaluation Document reviewed and electronically signed by: ? ANIRUDH ZARCO MD ? Report ??Date: 10/04/2016 16:51 HPV with Pap Test ? Date Ordered: ? 10/04/2016 ? Status: ?? Signed Out ?Date Complete: ? 10/07/2016 ? By: ??System Interface ? Date Reported: ? 10/07/2016 ? Interpretation RESULT: Positive for high or intermediate risk HPV. E6 OR E7 mRNA from one or more types of HPV types 16,18,31, 33,35,39,45,51,52, 56,58,59,66, and 68 is detected by blue line operator mediated amplification. High and intermediate risk HPV types are associated with most squamous intraepithelial lesions and cervical cancers. Comments Document reviewed and electronically signed by: ? System Interface ? Report date: 10/07/2016 By the signature above, the attending physician certifies that he/she has personally conducted a gross and/or microscopic examination of the described specimens and rendered or confirmed the above diagnosis. End of Report [facility] 09/28/2016 09/30/2016 us Romie Bearden GASOLINE TESTER PATHOLOGY ORDERABLES Final Res ult [facility] [address] [place] [address] documented in this encounter Visit Diagnoses Not on filedocumented in this encounter Care Teams Manager Switch Relationship Specialty Start Date End Date Unknown, Provider, PCP - General 08/24/11 documented as of this encounter
--- OUTSIDE RECORDS SUMMARY | 2024-09-03 11:52 | XMS_ITS | Encounter Summary ---
Author Organization [facility] Address [address] [place] [address] Care Team Providers Care Leasing Coordinator Name Role Phone Unknown, Provider Primary Care Provider Unava ilable Encounter Details Date Type Department Care Team (Late st Contact Info) Description 06/11/2020 Lab Requisition [facility] Pathology & Laboratory Medicine - [facility] [address] [place], [place] [id number] Outr Resulting Lab, Provider Social History Tobacco [...] Associated Diagnosis Comments CHLAMYDIA/N. GONORRHOEAE AMPLIFIED NUCLEIC ACID, THINPREP After X-Ray 05/23/2020 15:00 EST documented in this encounter Results * CHLAMYDIA/N. GONORRHOEAE AMPLIFIED RNA, THINPREP (05/23/2020 15:00 EST) Neisseria gonorrhoeae Result Negative Negative 08/04/2020 13:10 EST [facility] Chlamydia trachomatis Result Negative Negative 08/04/2020 13:10 EST [facility] Papanicolaou smear specimen (specimen) CERVIX UTERI STRUCTURE / Unknown 05/23/2020 15:00 EST 07/08/2020 14:08 EST us Provider Outr Resulting Lab MICROBIOLOGY - GENER AL ORDERABLES Final Result [facility] [address] [place] [address] documented in this encounter Visit Diagnoses Not on filedocumented in this encounter Care Teams Leasing Coordinator Relationship Specialty Start Date End Date Unknown, Provider, PCP - General 08/24/11 documented as of this encounter
[2024-09-03] MEDS: Ondansetron O.D.T. 4 MG TABEF PO (12:16)
[2024-09-03 12:19] VITALS: BP 124/98; PULSE 130; RESP 18; TEMP 37.5; O2SAT 98
--- NOTE | 2024-09-03 12:20 | ED.GENADUL_ITS ---
Discharge Plan Disposition Patient Disposition: Eloped Condition: Stable Discharge Details Chief Complaint: Nausea/Vomit/Diar Clinical Impression: Abdominal pain of unknown cause Primary Care Provider: Unknown,Unknown ED Provider: Chuy Lucia Home Meds and New Rx's Prescriptions: No Action Nexplanon 68 mg implant 1 implant subdermal ONCE Rx Instructions: as a single dose Discharge Data Discharge Date/Time-TO BE ENTERED AT DEPARTURE: 09/03/24 13:20 HPI General Date/Time Provider Initiated Documentation: 09/03/24 11:40 . HPI Narrative: 34 year-old female presents to ED today by POV/ambulating with a chief complaint of nausea/vomiting/diarrhea with onset around 0400 today. Quality described as generalized stomach cramps, can't keep anything down, no radiation to fever, severe abdominal pain, respiratory distress, fever, black/bloody stools, dysuria, urinary retention. Severity is described as mild to moderate. Palliating factors include nothing specific attempted. Provoking factors include nothing specific. Events leading up to the incident/Associated Symptoms: Patient endorses a history of renal stones. Patient not anticoagulated. Related Data Home Medications ?Medication ?Instructions ?Recorded ?Confirmed etonogestrel 68 mg subdermal 1 implant subdermal ONCE 04/23/21 09/03/24 implant (Nexplanon) Allergies Allergy/AdvReac Type Severity Reaction Status Date / Time sulfamethoxazole (From AdvReac Mild vomiting Unverified 09/03/24 11:40 Bactrim) trimethoprim (From Bactrim) AdvReac Mild vomiting Unverified 09/03/24 11:40 General Stated Complaint: Nausea/Vomit/Diar HEMNAT: 3 Review of Systems All systems reviewed & are unremarkable except as noted in HPI and below Exam Narrative Exam Narrative: GENERAL APPEARANCE: Well-nourished, non-toxic, awake and alert, atraumatic, no acute distress. SKIN: Warm, pink, dry, intact, without rashes/lesions/ulcerations. HEAD: Normocephalic, atraumatic, normal hair distribution for gender/age. EYES: Normal conjunctiva, no exudates on lids/lashes. ENT: Nares patent, no circumoral cyanosis, no facial swelling NECK: Supple, trachea midline, painless cervical ROM. LUNGS/CHEST: Lungs CTA bilaterally-no rhonchi/rales/wheezes diffusely, non- labored respirations, normal A/P diameter, symmetrical expansion, no chest wall deformity HEART (CV/PV): Regular rate-tachycardic, and rhythm without murmur, no peripheral edema, no JVD. ABDOMEN: Soft, non-distended, no guarding, mild right CVA tenderness to percussion, right upper quadrant tenderness without Rivera sign, nonperitoneal abdomen otherwise. MSK: Normal ROM, no swelling/deformity to bilateral UEs or LEs, moving all extremities without weakness, no cyanosis, spine midline without tenderness, normal curvature. NEURO: Mental Status AAOx4 - alert to person, place, time, events No facial droop, no forehead involvement. Motor: No focal weakness - strength 5/5 in bilateral UEs and LEs, proximal and distal, symmetric. Sensory: sensation intact to light touch globally. Gait normal: patient ambulated without ataxia into ED room. PSYCH: euthymic, cooperative, pleasant, appropriate speech Course Vital Signs Vital signs: Vital Signs Temperature 37.5 C 09/03/24 11:32 Pulse 129 H 09/03/24 11:32 Respiratory Rate 12 09/03/24 11:32 Blood Pressure 150/85 H 09/03/24 11:32 Pulse Oximetry 97 09/03/24 11:32 Temperature 37.5 C 09/03/24 11:32 Temperature Source Oral 09/03/24 11:32 Pulse 129 H 09/03/24 11:32 Respiratory Rate 12 09/03/24 11:32 Blood Pressure 150/85 H 09/03/24 11:32 Blood Pressure Position Sitting 09/03/24 11:32 Pulse Oximetry 97 09/03/24 11:32 Oxygen Delivery Method Room Air 09/03/24 11:32 Oxygen Flow Rate 0 09/03/24 11:32 Pain Level 3 09/03/24 11:32 Medical Decision Making This dictation utilizes ogyhb-ke-wilo dictation software and may contain unedited grammatical errors. 34 year-old female presents to ED today by POV/ambulating with a chief complaint of nausea/vomiting/diarrhea with onset around 0400 today. Quality described as generalized stomach cramps, can't keep anything down, no radiation to fever, severe abdominal pain, respiratory distress, fever, black/bloody stools, dysuria, urinary retention. Severity is described as mild to moderate. Palliating factors include nothing specific attempted. Provoking factors include nothing specific. Events leading up to the incident/Associated Symptoms: Patient endorses a history of renal stones. Patients' medical history: [ ]. Family and social history: [ ]. Pertinent exam findings / vital signs include mild right CVA tenderness to percussion, right upper quadrant tenderness, nonperitoneal abdomen, tachycardic, lungs CTA. Differential / pathologies of concern include renal stone, ureteral stone, biliary colic, gastroenteritis, sepsis. Diagnostic studies of: -CBC, CMP, magnesium, POC urine test, lipase, urinalysis, CT renal colic without contrast. -Patient eloped before studies could be performed, POC urine negative Interventions of: -Tylenol, Toradol, Zofran ODT. ED Course/Assessment/Plan: 34-year-old female presents with a few hours of nausea vomiting and diarrhea starting early this morning, states she cannot keep anything down, I discussed with her renal stone history as well as gastroenteritis as possible cause but wanted to do a workup to make sure she did not have a severe infection or any obstructive pathology in the abdomen, the patient received Zofran ODT and eloped from her room without informing anyone. Disposition of Abdominal Pain of Unknown Cause. Patient verbalized understanding of the plan and return to ED criteria and engaged in shared decision making. Medical Records Medical records reviewed: Yes I reviewed the patient's medical records. Quality:SDOH Health Related Social Needs: No Data to Display PFSH All Active Problems (Updated 09/06/24 @ 16:06 by JUAN Astorga) Abdominal pain of unknown cause (Acute) COVID-19 (Acute) Encounter for counseling regarding contraception (Acute) Nexplanon in place (Acute) UTI (urinary tract infection) (Acute) Medical History Abdominal pain Anxiety and depression ASCUS (atypical squamous cells of undetermined significance) on gynecologic Papanicolaou smear complicating , antepartum Bilateral plantar fasciitis Bipolar disorder Dysuria Left hip pain Low back pain Rash Social History Smoking/Tobacco Use Status: Never Smoking risk assessment performed?: Yes Alcohol Intake: current Alcohol Intake frequency: holidays/special occasions only Drug use: Never Substance use type: does not use Do you feel safe at home: Yes Do you feel safe in your relationship?: Yes History History 0 Para Hx # Term Pregnancies Multiple births Hx # Pregnancies Ectopic pregnancies AB induced Hx Number of Living Children AB spontaneous
== END 2024-09-03 13:20 | disposition left against medical advice (07) ==
PROVIDERS: Emergency Provider Physician Assistant
DX: R19.7 Diarrhea, unspecified; R10.9 Unspecified abdominal pain; R11.2 Nausea with vomiting, unspecified
CPT/HCPCS: 80053; 83690; 99282; 83735; 85025; 99283